=== PATIENT | male | born 1945 | race Caucasian/White ===

== ENCOUNTER 2018-12-10 20:17 | Inpatient (IN) ==
[2018-12-10 21:13] LABS: Basophils % 0.3 % (0.0-0.8); Eosinophils % 0.1 % (0.00-10.9); Hematocrit 48.9 VOL% (42.0-52.0); Hemoglobin 15.6 GM/DL (14.0-18.0); Immature Granulocytes % 0.5 %; Immature Granulocytes Absolute 0.06 #; Lymphocytes # 0.5 10*3/uL (1.4-4.0); Lymphocytes % 4.8 % (21.2-54.2); Mean Corpuscular HGB Conc 31.9 GM/DL (32-36); Mean Corpuscular Volume 108.9 FL (87-102); Mean Platelet Volume 9.5 FL (9.6-12.0); Monocytes % 5.9 % (1.7-12.7); Neutrophils % 88.4 % (38.7-73.9); Platelet Count 153 T/CUMM (130-400); Red Blood Count 4.49 MC/CUMM (3.8-5.5); Red Cell Distribution Width 12.9 % (9.3-17.3); White Blood Count 11.3 T/CUMM (4-12)
[2018-12-10] MEDS ORDERED: methylPREDNISolone SOD SUC 125 MG/2 ML VIAL IV STA (21:13)
[2018-12-10] MEDS ORDERED: ALBUTEROL/IPRATROPIUM 3 ML NEB RESP TX STA (21:14)
[2018-12-10 21:23] LABS: VBG Base Excess 4.6 MEQ/L (0-4); VBG HCO3 28.5 MEQ/L (24-28); VBG Oxygen Saturation 98.6 %; VBG PCO2 45.1 MMHG (41-51); VBG PH 7.427
[2018-12-10 21:32] LABS: Albumin 3.4 G/DL (3.4-5.0); Bilirubin,Total 0.8 MG/DL (0.2-1.0); Calcium 9.3 MG/DL (8.5-10.1); Osmolality,Calculated 288.3 MOS/KG (273-304); Total Protein 7.2 G/DL (6.4-8.3)
[2018-12-10 21:39] LABS: Lymphocytes 4 % (20-55); Segmented Neutrophils 91 % (50-85)
[2018-12-10 21:40] LABS: Platelet Estimate Normal
[2018-12-10 21:41] LABS: Total Cells Counted 100
[2018-12-10] MEDS ORDERED: cefTRIAXone 1,000 MG in SODIUM CHLORIDE 0.9% 100 ML IV STA (22:12)
[2018-12-10] MEDS ORDERED: AZITHROMYCIN 250 MG TABLET PO STA (22:12)
[2018-12-10] MEDS ORDERED: ONDANSETRON 4 MG/2 ML VIAL IV PRN (23:33)
[2018-12-10] MEDS ORDERED: ACETAMINOPHEN 325 MG TABLET PO PRN (23:33)
[2018-12-11] MEDS: DEXTROSE 5% NACL 0.9% 1,000 ML IV SCH ×3 (00:15→21:03)
[2018-12-11] MEDS ORDERED: AZITHROMYCIN INJ 500 MG in SODIUM CHLORIDE 0.9% 250 ML IV SCH ×2 (00:30→22:00)
[2018-12-11] MEDS ORDERED: predniSONE 10 MG TABLET PO PRN (07:42)
[2018-12-11] MEDS ORDERED: BUPRENORPHINE PATCH TRANSDERM SCH (07:45)
[2018-12-11] MEDS ORDERED: NON-FORMULARY MEDICATION (Tiotropium Bromide [Spiriva With Handihaler] 18 MCG) INH SCH (09:00)
[2018-12-11 10:13] LABS: Apearance,Urine CLEAR (Clear); Bilirubin,Urine Negative (Negative); Blood, Urine Negative (Negative); Glucose,Urine (UA) Negative (Negative); Hyaline Casts,Urine 1 /LPF (0-3); Ketones,Urine 5 mg/dL (Negative); Mucus,Urine Many /LPF (Occasional); Nitrite,Urine Negative (Negative); Protein,Urine 30 MG/DL; RBC,Urine 4 /HPF (0-4); Sperm,Urine Occasional /HPF (Negative); Urine Color Yellow (Yellow); Urine Specific Gravity 1.024 (1.001-1.035); Urine Urobilinogen < 2.0 EU/DL (0.2-1.0); WBC,Urine <1 /HPF (0-6)
[2018-12-11] MEDS: PANTOPRAZOLE 40 MG TABLET PO SCH (10:26)
[2018-12-11] MEDS: DOCUSATE SODIUM 100 MG CAPSULE PO SCH ×2 (10:26→21:00)
[2018-12-11] MEDS: FOLIC ACID 1 MG TABLET PO SCH (10:26)
[2018-12-11] MEDS: oxyCODONE ER 20 MG TABLET PO SCH ×2 (10:28→20:58)
[2018-12-11] MEDS: ALBUTEROL/IPRATROPIUM 3 ML NEB RESP TX SCH ×4 (10:36→23:30)
[2018-12-11] MEDS: cefTRIAXone 1,000 MG in SYRINGE 1 EACH IV SCH ×2 (10:49→21:00)
[2018-12-11] MEDS: MOMETASONE 0.1% OINT 15 GM TUBE TOP SCH (10:54)
[2018-12-11] MEDS: methylPREDNISolone SOD SUC 40 MG/1 ML VIAL IV SCH ×2 (10:55→16:39)
[2018-12-11] MEDS: FINASTERIDE 5 MG TABLET PO SCH (21:01)
[2018-12-11] MEDS: AZITHROMYCIN INJ 250 MG in SODIUM CHLORIDE 0.9% 250 ML IV SCH (21:17)
[2018-12-12] MEDS: methylPREDNISolone SOD SUC 40 MG/1 ML VIAL IV SCH ×3 (01:08→18:08)
[2018-12-12] MEDS: ALBUTEROL/IPRATROPIUM 3 ML NEB RESP TX SCH ×5 (02:38→20:06)
[2018-12-12] MEDS: DEXTROSE 5% NACL 0.9% 1,000 ML IV SCH ×2 (04:08→12:38)
[2018-12-12 05:39] LABS: Basophils % 0.1 % (0.0-0.8); Hemoglobin 11.7 GM/DL (14.0-18.0); Immature Granulocytes % 0.5 %; Immature Granulocytes Absolute 0.05 #; Lymphocytes # 0.2 10*3/uL (1.4-4.0); Mean Corpuscular HGB Conc 31.6 GM/DL (32-36); Mean Corpuscular Volume 111.8 FL (87-102); Mean Platelet Volume 10.5 FL (9.6-12.0); Neutrophils % 94.4 % (38.7-73.9); Platelet Count 155 T/CUMM (130-400); Red Blood Count 3.31 MC/CUMM (3.8-5.5); Red Cell Distribution Width 13.1 % (9.3-17.3); White Blood Count 10.8 T/CUMM (4-12)
[2018-12-12 06:04] LABS: Band Neutrophils 1 % (0-10); Hypochromasia Slight; Lymphocytes 2 % (20-55); Platelet Estimate Adequate; Segmented Neutrophils 93 % (50-85); Total Cells Counted 100
[2018-12-12 06:07] LABS: Alanine Aminotransferase 43 U/L (16-61); Albumin 2.7 G/DL (3.4-5.0); Alkaline Phosphatase 73 U/L (45-117); Aspartate Amino Transferase 64 U/L (0-37); Bilirubin,Total < 0.39 MG/DL (0.2-1.0); Blood Urea Nitrogen 26 MG/DL (7-18); Calcium 7.9 MG/DL (8.5-10.1); Glucose 158 MG/DL (74-106); HDL Cholesterol 60 MG/DL (40-60); Osmolality,Calculated 299.4 MOS/KG (273-304); Risk Ratio 1.97; Thyroid Stimulating Hormone 0.362 uIU/ml (0.358-3.74); Total Protein 5.8 G/DL (6.4-8.3); Triglycerides 75 MG/DL (2-150)
[2018-12-12] MEDS: DOCUSATE SODIUM 100 MG CAPSULE PO SCH ×2 (09:18→21:41)
[2018-12-12] MEDS: FOLIC ACID 1 MG TABLET PO SCH (09:18)
[2018-12-12] MEDS: PANTOPRAZOLE 40 MG TABLET PO SCH (09:18)
[2018-12-12] MEDS: oxyCODONE ER 20 MG TABLET PO SCH ×2 (09:18→20:01)
[2018-12-12] MEDS: cefTRIAXone 1,000 MG in SYRINGE 1 EACH IV SCH ×2 (09:21→21:41)
[2018-12-12] MEDS: MOMETASONE 0.1% OINT 15 GM TUBE TOP SCH (09:25)
[2018-12-12] MEDS: FINASTERIDE 5 MG TABLET PO SCH (21:41)
[2018-12-12] MEDS: AZITHROMYCIN INJ 250 MG in SODIUM CHLORIDE 0.9% 250 ML IV SCH (21:42)
[2018-12-13] MEDS: ALBUTEROL/IPRATROPIUM 3 ML NEB RESP TX SCH ×6 (00:21→19:34)
[2018-12-13] MEDS: DEXTROSE 5% NACL 0.9% 1,000 ML IV SCH (00:46)
[2018-12-13] MEDS: methylPREDNISolone SOD SUC 40 MG/1 ML VIAL IV SCH ×3 (00:50→17:20)
[2018-12-13 05:00] LABS: Basophils % 0.1 % (0.0-0.8); Hematocrit 40.9 VOL% (42.0-52.0); Hemoglobin 12.9 GM/DL (14.0-18.0); Immature Granulocytes % 0.8 %; Immature Granulocytes Absolute 0.11 #; Lymphocytes # 0.5 10*3/uL (1.4-4.0); Lymphocytes % 3.2 % (21.2-54.2); Mean Corpuscular HGB Conc 31.5 GM/DL (32-36); Mean Corpuscular Volume 112.7 FL (87-102); Mean Platelet Volume 10.4 FL (9.6-12.0); Monocytes % 4.6 % (1.7-12.7); Neutrophils % 91.3 % (38.7-73.9); Platelet Count 158 T/CUMM (130-400); Red Blood Count 3.63 MC/CUMM (3.8-5.5); Red Cell Distribution Width 13.1 % (9.3-17.3); White Blood Count 14.1 T/CUMM (4-12)
[2018-12-13 05:26] LABS: Hypochromasia 1+; Lymphocytes 1 % (20-55); Platelet Estimate Adequate; Segmented Neutrophils 94 % (50-85); Total Cells Counted 100
[2018-12-13 05:28] LABS: Alanine Aminotransferase 74 U/L (16-61); Albumin 2.8 G/DL (3.4-5.0); Alkaline Phosphatase 82 U/L (45-117); Aspartate Amino Transferase 71 U/L (0-37); Bilirubin,Total < 0.39 MG/DL (0.2-1.0); Blood Urea Nitrogen 19 MG/DL (7-18); Calcium 8.1 MG/DL (8.5-10.1); Glucose 136 MG/DL (74-106); Osmolality,Calculated 293.6 MOS/KG (273-304)
[2018-12-13] MEDS: DEXT 5% NACL 0.45% KCL 20 MEQ 20 MEQ/1,000 ML BAG IV SCH ×2 (08:45→17:19)
[2018-12-13] MEDS: MOMETASONE 0.1% OINT 15 GM TUBE TOP SCH (09:04)
[2018-12-13] MEDS: DOCUSATE SODIUM 100 MG CAPSULE PO SCH ×2 (09:05→20:58)
[2018-12-13] MEDS: FOLIC ACID 1 MG TABLET PO SCH (09:05)
[2018-12-13] MEDS: PANTOPRAZOLE 40 MG TABLET PO SCH (09:06)
[2018-12-13] MEDS: oxyCODONE ER 20 MG TABLET PO SCH ×2 (09:06→20:58)
[2018-12-13] MEDS: cefTRIAXone 1,000 MG in SYRINGE 1 EACH IV SCH ×2 (09:09→20:58)
[2018-12-13] MEDS: FINASTERIDE 5 MG TABLET PO SCH (20:58)
[2018-12-13] MEDS: AZITHROMYCIN INJ 250 MG in SODIUM CHLORIDE 0.9% 250 ML IV SCH (21:00)
[2018-12-14] MEDS: ALBUTEROL/IPRATROPIUM 3 ML NEB RESP TX SCH ×3 (00:16→08:08)
[2018-12-14] MEDS: methylPREDNISolone SOD SUC 40 MG/1 ML VIAL IV SCH (00:52)
[2018-12-14] MEDS: DEXT 5% NACL 0.45% KCL 20 MEQ 20 MEQ/1,000 ML BAG IV SCH (02:15)
[2018-12-14 04:44] LABS: Basophils % 0.2 % (0.0-0.8); Hemoglobin 13.7 GM/DL (14.0-18.0); Immature Granulocytes % 2.2 %; Immature Granulocytes Absolute 0.29 #; Lymphocytes # 0.4 10*3/uL (1.4-4.0); Lymphocytes % 2.8 % (21.2-54.2); Mean Corpuscular HGB Conc 31.9 GM/DL (32-36); Mean Corpuscular Volume 110.8 FL (87-102); Mean Platelet Volume 10.1 FL (9.6-12.0); Monocytes % 4.9 % (1.7-12.7); Neutrophils % 89.9 % (38.7-73.9); Platelet Count 158 T/CUMM (130-400); Red Blood Count 3.88 MC/CUMM (3.8-5.5); Red Cell Distribution Width 13.1 % (9.3-17.3); White Blood Count 12.9 T/CUMM (4-12)
[2018-12-14 05:18] LABS: Lymphocytes 4 % (20-55); Platelet Estimate Adequate; Segmented Neutrophils 92 % (50-85); Total Cells Counted 100
[2018-12-14 05:19] LABS: Hypochromasia 1+
[2018-12-14 05:20] LABS: Albumin 2.9 G/DL (3.4-5.0); Bilirubin,Total 0.4 MG/DL (0.2-1.0); Calcium 8.2 MG/DL (8.5-10.1)
[2018-12-14 07:22] VITALS: BP 165/98
[2018-12-14] MEDS ORDERED: CEFUROXIME 500 MG TABLET PO SCH (09:00)
[2018-12-14] MEDS ORDERED: predniSONE 10 MG TABLET PO SCH (09:00)
[2018-12-14] MEDS: PANTOPRAZOLE 40 MG TABLET PO SCH (09:54)
[2018-12-14] MEDS: DOCUSATE SODIUM 100 MG CAPSULE PO SCH (09:54)
[2018-12-14] MEDS: FOLIC ACID 1 MG TABLET PO SCH (09:54)
[2018-12-14] MEDS: oxyCODONE ER 20 MG TABLET PO SCH (09:54)
[2018-12-14] MEDS: MOMETASONE 0.1% OINT 15 GM TUBE TOP SCH (09:56)
[2018-12-17] MEDS ORDERED: METHOTREXATE 2.5 MG TABLET PO SCH (09:00)
== END 2018-12-14 11:15 | disposition home or self-care (01) | DRG 191 ==
LOC: N.ED 20:17 → N.EDINP 23:03 → N.2E 23:23
PROVIDERS: ADMIT Internal Medicine; ATTEND Family Medicine

== ENCOUNTER 2021-08-17 15:09 | Inpatient (IN) ==
[2021-08-17 15:49] LABS: Basophils % 0.2 % (0.0-0.8); Eosinophils # 0.6 10*3/uL (0.0-0.87); Eosinophils % 3.4 % (0.00-10.9); Hematocrit 35.5 VOL% (42.0-52.0); Hemoglobin 11.2 GM/DL (14.0-18.0); Immature Granulocytes % 0.6 %; Lymphocytes # 0.8 10*3/uL (1.4-4.0); Lymphocytes % 4.8 % (21.2-54.2); Mean Corpuscular HGB Conc 31.5 GM/DL (32-36); Mean Corpuscular Volume 103.5 FL (87-102); Mean Platelet Volume 9.1 FL (9.6-12.0); Monocytes # 0.9 10*3/uL (0.11-0.8); Monocytes % 5.3 % (1.7-12.7); Neutrophils % 85.7 % (38.7-73.9); Platelet Count 255 T/CUMM (130-400); Red Blood Count 3.43 MC/CUMM (3.8-5.5); White Blood Count 17.4 T/CUMM (4-12)
[2021-08-17 16:04] LABS: Bilirubin,Total 0.5 MG/DL (0.20-1.00); Calcium 9.4 MG/DL (8.5-10.1); Osmolality,Calculated 272.1 MOS/KG (273-304); Total Protein 7.4 G/DL (6.4-8.2)
[2021-08-17 16:07] LABS: Anisocytosis 1+; Eosinophils 3 % (0-10); Hypochromia Slight; Lymphocytes 3 % (20-55); Total Cells Counted 100
[2021-08-17 16:08] LABS: Atypical Lymphocytes Few; Macrocytosis 1+; Platelet Estimate Normal; Polychromasia Slight
[2021-08-17] MEDS ORDERED: SODIUM CHLORIDE 0.9% 1,000 ML IV STA (16:38)
[2021-08-17] MEDS ORDERED: ALBUTEROL/IPRATROPIUM 3 ML NEB RESP TX STA (16:39)
[2021-08-17] MEDS ORDERED: LEVOFLOXACIN INJ 750 MG/150 ML PREMIX IV STA (19:01)
[2021-08-17] MEDS ORDERED: oxyCODONE/ACETAMINOPHEN 5-325 MG TABLET PO STA (19:55)
[2021-08-17] MEDS ORDERED: ACETAMINOPHEN 325 MG TABLET PO PRN (19:55)
[2021-08-17] MEDS ORDERED: HYDROmorphone 1 MG/1 ML SYRINGE IV STA (19:55)
[2021-08-17] MEDS ORDERED: ONDANSETRON 4 MG/2 ML VIAL IV PRN (19:55)
[2021-08-17] MEDS: LEVOFLOXACIN INJ 500 MG/100 ML PREMIX IV SCH (21:19)
[2021-08-17] MEDS: SODIUM CHLORIDE 0.9% 1,000 ML IV SCH (22:40)
[2021-08-17] MEDS: DOCUSATE SODIUM 100 MG CAPSULE PO SCH (23:47)
[2021-08-18] MEDS ORDERED: ALBUTEROL/IPRATROPIUM 3 ML NEB RESP TX SCH
[2021-08-18] MEDS: ALBUTEROL/IPRATROPIUM 3 ML NEB RESP TX SCH ×3 (07:23→19:00)
[2021-08-18] MEDS ORDERED: BUPRENORPHINE TRANSDERM SCH (07:45)
[2021-08-18] MEDS ORDERED: MAGNESIUM HYDROXIDE SUSP 30 ML UDCUP PO PRN (07:51)
[2021-08-18] MEDS ORDERED: ZALEPLON 5 MG CAPSULE PO PRN (07:51)
[2021-08-18] MEDS ORDERED: FOLIC ACID 400 MCG PO SCH (09:00)
[2021-08-18] MEDS ORDERED: MOMETASONE 0.1% TOP SCH (09:00)
[2021-08-18] MEDS ORDERED: METHOTREXATE 2.5 MG/ML PO SCH (09:00)
[2021-08-18] MEDS: DOCUSATE SODIUM 100 MG CAPSULE PO SCH ×2 (12:20→22:02)
[2021-08-18] MEDS: cefTRIAXone 1,000 MG in SODIUM CHLORIDE 0.9% 100 ML IV SCH (12:21)
[2021-08-18] MEDS: oxyCODONE ER 20 MG TABLET PO SCH ×2 (12:21→22:02)
[2021-08-18] MEDS: PANTOPRAZOLE 40 MG TABLET PO SCH (12:21)
[2021-08-18] MEDS: methylPREDNISolone SOD SUC 40 MG/1 ML VIAL IV SCH ×3 (12:21→22:02)
[2021-08-18] MEDS ORDERED: IPRATROPIUM 500 MCG/2.5 ML NEB RESP TX SCH (15:00)
[2021-08-18] MEDS: SODIUM CHLORIDE 0.9% 1,000 ML IV SCH ×3 (16:08→22:57)
[2021-08-18] MEDS: LEVOFLOXACIN INJ 500 MG/100 ML PREMIX IV SCH (20:17)
[2021-08-18] MEDS: FINASTERIDE 5 MG TABLET PO SCH (22:02)
[2021-08-19] MEDS: ALBUTEROL/IPRATROPIUM 3 ML NEB RESP TX SCH ×4 (00:05→19:15)
[2021-08-19] MEDS: methylPREDNISolone SOD SUC 40 MG/1 ML VIAL IV SCH ×3 (05:28→20:49)
[2021-08-19] MEDS: SODIUM CHLORIDE 0.9% 1,000 ML IV SCH ×2 (05:29→16:10)
[2021-08-19 05:39] LABS: Hematocrit 34.6 VOL% (42.0-52.0); Hemoglobin 10.8 GM/DL (14.0-18.0); Immature Granulocytes % 0.5 %; Immature Granulocytes Absolute 0.04 #; Lymphocytes # 0.4 10*3/uL (1.4-4.0); Lymphocytes % 4.7 % (21.2-54.2); Mean Corpuscular HGB Conc 31.2 GM/DL (32-36); Mean Corpuscular Volume 106.1 FL (87-102); Mean Platelet Volume 9.9 FL (9.6-12.0); Monocytes # 0.1 10*3/uL (0.11-0.8); Monocytes % 1.1 % (1.7-12.7); Neutrophils % 93.7 % (38.7-73.9); Platelet Count 227 T/CUMM (130-400); Red Blood Count 3.26 MC/CUMM (3.8-5.5); Red Cell Distribution Width 15.1 % (9.3-17.3); White Blood Count 8.2 T/CUMM (4-12)
[2021-08-19 06:00] LABS: Alanine Aminotransferase 15 U/L (16-61); Albumin 2.5 G/DL (3.4-5.0); Alkaline Phosphatase 74 U/L (45-117); Aspartate Amino Transferase 12 U/L (0-37); Bilirubin,Total < 0.39 MG/DL (0.20-1.00); Blood Urea Nitrogen 20 MG/DL (7-18); Carbon Dioxide 29 MMOL/L (21-32); Chloride 104 MMOL/L (98-107); Estimated Glom Filtration Rate 52 ML/MIN; Glucose 168 MG/DL (74-106); Osmolality,Calculated 281.7 MOS/KG (273-304); Potassium 4.4 MMOL/L (3.5-5.1); Sodium 138 MMOL/L (136-145); Total Protein 6.7 G/DL (6.4-8.2)
[2021-08-19 06:03] LABS: Lymphocytes 5 % (20-55); Platelet Estimate Adequate; Total Cells Counted 100
[2021-08-19] MEDS ORDERED: AZITHROMYCIN 250 MG TABLET PO ONE (07:53)
[2021-08-19] MEDS: PANTOPRAZOLE 40 MG TABLET PO SCH (09:07)
[2021-08-19] MEDS: MULTIVITAMIN (CENTRUM) TABLET PO SCH (09:07)
[2021-08-19] MEDS: oxyCODONE ER 20 MG TABLET PO SCH ×2 (09:07→20:49)
[2021-08-19] MEDS: DOCUSATE SODIUM 100 MG CAPSULE PO SCH ×2 (09:07→20:49)
[2021-08-19] MEDS: cefTRIAXone 1,000 MG in SODIUM CHLORIDE 0.9% 100 ML IV SCH (12:10)
[2021-08-19] MEDS: FINASTERIDE 5 MG TABLET PO SCH (20:49)
[2021-08-20] MEDS: ALBUTEROL/IPRATROPIUM 3 ML NEB RESP TX SCH ×4 (00:30→19:43)
[2021-08-20] MEDS: methylPREDNISolone SOD SUC 40 MG/1 ML VIAL IV SCH ×3 (03:49→22:00)
[2021-08-20 04:03] LABS: Basophils % 0.1 % (0.0-0.8); Hematocrit 33.9 VOL% (42.0-52.0); Hemoglobin 10.7 GM/DL (14.0-18.0); Immature Granulocytes % 1.1 %; Immature Granulocytes Absolute 0.14 #; Lymphocytes # 0.4 10*3/uL (1.4-4.0); Lymphocytes % 3.4 % (21.2-54.2); Mean Corpuscular HGB Conc 31.6 GM/DL (32-36); Mean Platelet Volume 9.5 FL (9.6-12.0); Monocytes # 0.3 10*3/uL (0.11-0.8); Monocytes % 2.3 % (1.7-12.7); Neutrophils % 93.1 % (38.7-73.9); Platelet Count 236 T/CUMM (130-400); Red Blood Count 3.26 MC/CUMM (3.8-5.5); Red Cell Distribution Width 15.1 % (9.3-17.3); White Blood Count 12.3 T/CUMM (4-12)
[2021-08-20 04:23] LABS: Lymphocytes 2 % (20-55); Total Cells Counted 100
[2021-08-20 04:24] LABS: Macrocytosis Slight
[2021-08-20 04:27] LABS: Alanine Aminotransferase 19 U/L (16-61); Albumin 2.7 G/DL (3.4-5.0); Alkaline Phosphatase 75 U/L (45-117); Aspartate Amino Transferase 22 U/L (0-37); Bilirubin,Total < 0.39 MG/DL (0.20-1.00); Blood Urea Nitrogen 27 MG/DL (7-18); Calcium 9.3 MG/DL (8.5-10.1); Carbon Dioxide 28 MMOL/L (21-32); Chloride 104 MMOL/L (98-107); Estimated Glom Filtration Rate 67 ML/MIN; Glucose 135 MG/DL (74-106); Osmolality,Calculated 281.7 MOS/KG (273-304); Potassium 4.1 MMOL/L (3.5-5.1); Sodium 138 MMOL/L (136-145); Total Protein 6.7 G/DL (6.4-8.2)
[2021-08-20] MEDS ORDERED: PROMETHAZINE 25 MG/1 ML VIAL IM ONE (07:00)
[2021-08-20] MEDS ORDERED: MEPERIDINE 50 MG/1 ML VIAL IM ONE (07:00)
[2021-08-20] MEDS ORDERED: MIDAZOLAM 2 MG/2 ML VIAL IV ONE (07:30)
[2021-08-20] MEDS ORDERED: LIDOCAINE 2% VISCOUS 100 ML BOTTLE SWISH/SPIT ONE (07:30)
[2021-08-20] MEDS ORDERED: LIDOCAINE 1% 20 ML VIAL MISC INJ ONE (07:30)
[2021-08-20] MEDS ORDERED: LIDOCAINE 2% 20 ML VIAL RESP TX ONE (07:30)
[2021-08-20] MEDS: AZITHROMYCIN 250 MG TABLET PO SCH (10:13)
[2021-08-20] MEDS: MULTIVITAMIN (CENTRUM) TABLET PO SCH (10:13)
[2021-08-20] MEDS: DOCUSATE SODIUM 100 MG CAPSULE PO SCH ×2 (10:14→22:00)
[2021-08-20] MEDS: oxyCODONE ER 20 MG TABLET PO SCH ×2 (10:14→22:00)
[2021-08-20] MEDS: PANTOPRAZOLE 40 MG TABLET PO SCH (10:14)
[2021-08-20] MEDS: cefTRIAXone 1,000 MG in SODIUM CHLORIDE 0.9% 100 ML IV SCH (11:37)
[2021-08-20] MEDS: FINASTERIDE 5 MG TABLET PO SCH (21:59)
[2021-08-20] MEDS: SODIUM CHLORIDE 0.9% 1,000 ML IV SCH ×3 (22:00→22:20)
[2021-08-21] MEDS: ALBUTEROL/IPRATROPIUM 3 ML NEB RESP TX SCH ×4 (01:43→19:38)
[2021-08-21] MEDS: methylPREDNISolone SOD SUC 40 MG/1 ML VIAL IV SCH ×3 (04:47→21:47)
[2021-08-21 05:28] LABS: Basophils % 0.2 % (0.0-0.8); Eosinophils % 0.1 % (0.00-10.9); Hematocrit 35.8 VOL% (42.0-52.0); Hemoglobin 10.8 GM/DL (14.0-18.0); Immature Granulocytes % 1.8 %; Immature Granulocytes Absolute 0.24 #; Lymphocytes # 0.9 10*3/uL (1.4-4.0); Lymphocytes % 7.2 % (21.2-54.2); Mean Corpuscular HGB Conc 30.2 GM/DL (32-36); Mean Corpuscular Volume 108.5 FL (87-102); Mean Platelet Volume 9.9 FL (9.6-12.0); Monocytes # 1.4 10*3/uL (0.11-0.8); Monocytes % 10.8 % (1.7-12.7); Neutrophils % 79.9 % (38.7-73.9); Platelet Count 237 T/CUMM (130-400); Red Cell Distribution Width 15.5 % (9.3-17.3); White Blood Count 13.1 T/CUMM (4-12)
[2021-08-21 06:04] LABS: Calcium 8.1 MG/DL (8.5-10.1); Osmolality,Calculated 282.7 MOS/KG (273-304); Potassium 3.6 MMOL/L (3.5-5.1)
[2021-08-21] MEDS: SODIUM CHLORIDE 0.9% 1,000 ML IV SCH ×2 (06:25→22:17)
[2021-08-21] MEDS: AZITHROMYCIN 250 MG TABLET PO SCH (09:03)
[2021-08-21] MEDS: MULTIVITAMIN (CENTRUM) TABLET PO SCH (09:03)
[2021-08-21] MEDS: DOCUSATE SODIUM 100 MG CAPSULE PO SCH ×2 (09:03→21:47)
[2021-08-21] MEDS: oxyCODONE ER 20 MG TABLET PO SCH ×2 (09:04→21:47)
[2021-08-21] MEDS: PANTOPRAZOLE 40 MG TABLET PO SCH (09:15)
[2021-08-21] MEDS: cefTRIAXone 1,000 MG in SODIUM CHLORIDE 0.9% 100 ML IV SCH (12:25)
[2021-08-21] MEDS: BUDESONIDE 0.25 MG/2 ML NEB RESP TX SCH (19:38)
[2021-08-21] MEDS: FINASTERIDE 5 MG TABLET PO SCH (21:47)
[2021-08-22] MEDS: ALBUTEROL/IPRATROPIUM 3 ML NEB RESP TX SCH ×4 (00:19→19:05)
[2021-08-22] MEDS: methylPREDNISolone SOD SUC 40 MG/1 ML VIAL IV SCH ×3 (04:20→21:07)
[2021-08-22 06:11] LABS: Basophils % 0.2 % (0.0-0.8); Hematocrit 36.7 VOL% (42.0-52.0); Hemoglobin 11.3 GM/DL (14.0-18.0); Immature Granulocytes % 1.9 %; Immature Granulocytes Absolute 0.34 #; Lymphocytes # 0.4 10*3/uL (1.4-4.0); Lymphocytes % 2.3 % (21.2-54.2); Mean Corpuscular HGB Conc 30.8 GM/DL (32-36); Mean Platelet Volume 9.6 FL (9.6-12.0); Monocytes # 0.6 10*3/uL (0.11-0.8); Monocytes % 3.2 % (1.7-12.7); Neutrophils % 92.4 % (38.7-73.9); Platelet Count 251 T/CUMM (130-400); Red Blood Count 3.43 MC/CUMM (3.8-5.5); Red Cell Distribution Width 15.4 % (9.3-17.3); White Blood Count 18.2 T/CUMM (4-12)
[2021-08-22 06:41] LABS: Lymphocytes 2 % (20-55); Platelet Estimate Normal; Total Cells Counted 100
[2021-08-22 06:49] LABS: Calcium 8.6 MG/DL (8.5-10.1); Osmolality,Calculated 284.4 MOS/KG (273-304); Potassium 4.4 MMOL/L (3.5-5.1)
[2021-08-22] MEDS: BUDESONIDE 0.25 MG/2 ML NEB RESP TX SCH ×2 (07:10→19:05)
[2021-08-22] MEDS: SODIUM CHLORIDE 0.9% 1,000 ML IV SCH ×3 (07:21→19:27)
[2021-08-22] MEDS: DOCUSATE SODIUM 100 MG CAPSULE PO SCH ×2 (10:16→21:07)
[2021-08-22] MEDS: MULTIVITAMIN (CENTRUM) TABLET PO SCH (10:16)
[2021-08-22] MEDS: AZITHROMYCIN 250 MG TABLET PO SCH (10:16)
[2021-08-22] MEDS: PANTOPRAZOLE 40 MG TABLET PO SCH (10:16)
[2021-08-22] MEDS: oxyCODONE ER 20 MG TABLET PO SCH ×2 (10:19→21:07)
[2021-08-22] MEDS: cefTRIAXone 1,000 MG in SODIUM CHLORIDE 0.9% 100 ML IV SCH (12:08)
[2021-08-22] MEDS: FINASTERIDE 5 MG TABLET PO SCH (21:07)
[2021-08-23] MEDS: ALBUTEROL/IPRATROPIUM 3 ML NEB RESP TX SCH ×4 (01:15→19:00)
[2021-08-23] MEDS: methylPREDNISolone SOD SUC 40 MG/1 ML VIAL IV SCH ×3 (04:01→21:30)
[2021-08-23 05:17] LABS: Calcium 8.7 MG/DL (8.5-10.1); Osmolality,Calculated 285.4 MOS/KG (273-304); Potassium 4.3 MMOL/L (3.5-5.1)
[2021-08-23] MEDS: BUDESONIDE 0.25 MG/2 ML NEB RESP TX SCH ×2 (07:11→19:10)
[2021-08-23] MEDS: AZITHROMYCIN 250 MG TABLET PO SCH (09:26)
[2021-08-23] MEDS: PANTOPRAZOLE 40 MG TABLET PO SCH (09:26)
[2021-08-23] MEDS: oxyCODONE ER 20 MG TABLET PO SCH ×2 (09:26→21:31)
[2021-08-23] MEDS: DOCUSATE SODIUM 100 MG CAPSULE PO SCH ×2 (09:26→21:30)
[2021-08-23] MEDS: MULTIVITAMIN (CENTRUM) TABLET PO SCH (09:27)
[2021-08-23] MEDS: SODIUM CHLORIDE 0.9% 1,000 ML IV SCH ×2 (09:31→16:00)
[2021-08-23] MEDS: cefTRIAXone 1,000 MG in SODIUM CHLORIDE 0.9% 100 ML IV SCH (11:35)
[2021-08-23] MEDS: FINASTERIDE 5 MG TABLET PO SCH (21:31)
[2021-08-24] MEDS: ALBUTEROL/IPRATROPIUM 3 ML NEB RESP TX SCH ×4 (01:43→18:59)
[2021-08-24 05:08] LABS: Basophils # 0.1 10*3/uL (0.0-0.2); Basophils % 0.2 % (0.0-0.8); Hematocrit 36.9 VOL% (42.0-52.0); Hemoglobin 11.7 GM/DL (14.0-18.0); Immature Granulocytes % 2.9 %; Immature Granulocytes Absolute 0.74 #; Lymphocytes # 0.5 10*3/uL (1.4-4.0); Lymphocytes % 2.1 % (21.2-54.2); Mean Corpuscular HGB Conc 31.7 GM/DL (32-36); Mean Corpuscular Volume 104.5 FL (87-102); Mean Platelet Volume 9.4 FL (9.6-12.0); Monocytes # 1.1 10*3/uL (0.11-0.8); Monocytes % 4.2 % (1.7-12.7); Neutrophils % 90.6 % (38.7-73.9); Platelet Count 250 T/CUMM (130-400); Red Blood Count 3.53 MC/CUMM (3.8-5.5); Red Cell Distribution Width 15.8 % (9.3-17.3); White Blood Count 25.2 T/CUMM (4-12)
[2021-08-24 05:30] LABS: Lymphocytes 2 % (20-55); Myelocytes 1 %; Total Cells Counted 100
[2021-08-24 05:31] LABS: Macrocytosis Slight
[2021-08-24 05:50] LABS: Calcium 9.1 MG/DL (8.5-10.1); Osmolality,Calculated 279.8 MOS/KG (273-304); Potassium 4.3 MMOL/L (3.5-5.1)
[2021-08-24] MEDS: methylPREDNISolone SOD SUC 40 MG/1 ML VIAL IV SCH ×3 (06:20→21:28)
[2021-08-24] MEDS: BUDESONIDE 0.25 MG/2 ML NEB RESP TX SCH ×2 (07:30→18:59)
[2021-08-24] MEDS ORDERED: FUROSEMIDE 40 MG/4 ML VIAL IV ONE (08:12)
[2021-08-24] MEDS: AZITHROMYCIN 250 MG TABLET PO SCH (09:13)
[2021-08-24] MEDS: PANTOPRAZOLE 40 MG TABLET PO SCH (09:13)
[2021-08-24] MEDS: DOCUSATE SODIUM 100 MG CAPSULE PO SCH ×2 (09:13→21:28)
[2021-08-24] MEDS: GABAPENTIN 100 MG CAPSULE PO SCH ×2 (09:13→21:28)
[2021-08-24] MEDS: FOLIC ACID 1 MG TABLET PO SCH (09:13)
[2021-08-24] MEDS: MULTIVITAMIN (CENTRUM) TABLET PO SCH (09:13)
[2021-08-24] MEDS: oxyCODONE ER 20 MG TABLET PO SCH ×2 (09:13→21:29)
[2021-08-24] MEDS: ITRACONAZOLE 100 MG CAPSULE PO SCH (09:17)
[2021-08-24] MEDS: cefTRIAXone 1,000 MG in SODIUM CHLORIDE 0.9% 100 ML IV SCH (10:34)
[2021-08-24] MEDS: SODIUM CHLORIDE 0.9% 1,000 ML IV SCH (15:53)
[2021-08-24] MEDS: FINASTERIDE 5 MG TABLET PO SCH (21:28)
[2021-08-25] MEDS: ALBUTEROL/IPRATROPIUM 3 ML NEB RESP TX SCH ×3 (01:05→13:17)
[2021-08-25 05:34] LABS: Alanine Aminotransferase 20 U/L (16-61); Albumin 2.5 G/DL (3.4-5.0); Alkaline Phosphatase 74 U/L (45-117); Aspartate Amino Transferase 14 U/L (0-37); Bilirubin,Total < 0.39 MG/DL (0.20-1.00); Blood Urea Nitrogen 32 MG/DL (7-18); Calcium 8.5 MG/DL (8.5-10.1); Carbon Dioxide 30 MMOL/L (21-32); Chloride 101 MMOL/L (98-107); Estimated Glom Filtration Rate 66 ML/MIN; Glucose 141 MG/DL (74-106); Potassium 4.6 MMOL/L (3.5-5.1); Sodium 136 MMOL/L (136-145); Total Protein 6.4 G/DL (6.4-8.2)
[2021-08-25 05:54] LABS: Basophils # 0.1 10*3/uL (0.0-0.2); Basophils % 0.4 % (0.0-0.8); Hematocrit 36.9 VOL% (42.0-52.0); Hemoglobin 11.6 GM/DL (14.0-18.0); Immature Granulocytes % 3.5 %; Immature Granulocytes Absolute 0.62 #; Lymphocytes # 0.6 10*3/uL (1.4-4.0); Lymphocytes % 3.3 % (21.2-54.2); Mean Corpuscular HGB Conc 31.4 GM/DL (32-36); Mean Corpuscular Volume 106.6 FL (87-102); Mean Platelet Volume 9.7 FL (9.6-12.0); Monocytes # 0.7 10*3/uL (0.11-0.8); Monocytes % 3.9 % (1.7-12.7); Neutrophils % 88.9 % (38.7-73.9); Platelet Count 227 T/CUMM (130-400); Red Blood Count 3.46 MC/CUMM (3.8-5.5); Red Cell Distribution Width 15.9 % (9.3-17.3); White Blood Count 17.6 T/CUMM (4-12)
[2021-08-25 06:00] LABS: Lymphocytes 3 % (20-55); Total Cells Counted 100
[2021-08-25 06:01] LABS: Macrocytosis Slight
[2021-08-25] MEDS: methylPREDNISolone SOD SUC 40 MG/1 ML VIAL IV SCH ×2 (06:31→11:51)
[2021-08-25] MEDS: BUDESONIDE 0.25 MG/2 ML NEB RESP TX SCH (07:40)
[2021-08-25 08:33] VITALS: BP 149/68
[2021-08-25] MEDS ORDERED: CEFDINIR 300 MG CAPSULE PO SCH (09:00)
[2021-08-25] MEDS: FOLIC ACID 1 MG TABLET PO SCH (09:39)
[2021-08-25] MEDS: ITRACONAZOLE 100 MG CAPSULE PO SCH (09:39)
[2021-08-25] MEDS: oxyCODONE ER 20 MG TABLET PO SCH (09:39)
[2021-08-25] MEDS: GABAPENTIN 100 MG CAPSULE PO SCH (09:40)
[2021-08-25] MEDS: AZITHROMYCIN 250 MG TABLET PO SCH (09:40)
[2021-08-25] MEDS: DOCUSATE SODIUM 100 MG CAPSULE PO SCH (09:40)
[2021-08-25] MEDS: PANTOPRAZOLE 40 MG TABLET PO SCH (09:40)
[2021-08-25] MEDS: MULTIVITAMIN (CENTRUM) TABLET PO SCH (09:40)
[2021-08-25] MEDS: cefTRIAXone 1,000 MG in SODIUM CHLORIDE 0.9% 100 ML IV SCH (11:50)
== END 2021-08-25 13:44 | disposition home or self-care (01) | DRG 190 ==
LOC: N.ED 15:09 → N.EDINP 21:34 → N.SDSINP 22:35 → N.TELEN 22:35
PROVIDERS: ADMIT Family Medicine; ATTEND Family Medicine

== ENCOUNTER 2021-11-27 14:50 | Inpatient (IN) ==
[2021-11-27] MEDS ORDERED: PIPERACILLIN/TAZOBACTAM 3,375 MG in SODIUM CHLORIDE 0.9% 100 ML IV STA (15:23)
[2021-11-27] MEDS ORDERED: methylPREDNISolone SOD SUC 125 MG/2 ML VIAL IV STA (15:23)
[2021-11-27] MEDS ORDERED: ALBUTEROL/IPRATROPIUM 3 ML NEB RESP TX STA (15:23)
[2021-11-27 15:34] LABS: Basophils # 0.1 10*3/uL (0.0-0.2); Basophils % 0.4 % (0.0-0.8); Hematocrit 41.8 VOL% (42.0-52.0); Hemoglobin 13.6 GM/DL (14.0-18.0); Immature Granulocytes % 6.3 %; Immature Granulocytes Absolute 1.48 #; Lymphocytes # 0.6 10*3/uL (1.4-4.0); Lymphocytes % 2.5 % (21.2-54.2); Mean Corpuscular HGB Conc 32.5 GM/DL (32-36); Mean Corpuscular Volume 103.2 FL (87-102); Mean Platelet Volume 9.3 FL (9.6-12.0); Monocytes # 1.5 10*3/uL (0.11-0.8); Monocytes % 6.3 % (1.7-12.7); Neutrophils % 84.5 % (38.7-73.9); Platelet Count 205 T/CUMM (130-400); Red Blood Count 4.05 MC/CUMM (3.8-5.5); Red Cell Distribution Width 17.2 % (9.3-17.3); White Blood Count 23.3 T/CUMM (4-12)
[2021-11-27 15:42] LABS: Arterial Base Excess iSTAT 8 MMOL/L (-2.5-2.5); Arterial Bicarbonate iSTAT 34.2 MMOL/L (20-26); Arterial O2 Saturation iSTAT 89 % (95-100); Arterial PCO2 iSTAT 55 MM HG (35-48); Arterial PO2 iSTAT 58 MM HG (80-95); Arterial Total CO2 iSTAT 36 MMO/L (23-27); Arterial pH iSTAT 7.405 (7.35-7.45)
[2021-11-27 16:15] LABS: Albumin 3.2 G/DL (3.4-5.0); Bilirubin,Total 0.4 MG/DL (0.20-1.00); Calcium 9.2 MG/DL (8.5-10.1); Osmolality,Calculated 286.3 MOS/KG (273-304); Potassium 3.9 MMOL/L (3.5-5.1); Total Protein 6.8 G/DL (6.4-8.2)
[2021-11-27 16:25] LABS: Lymphocytes 4 % (20-55); Platelet Estimate Adequate; Total Cells Counted 100
[2021-11-27 16:27] LABS: Anisocytosis 1+; Macrocytosis Slight
[2021-11-27] MEDS ORDERED: ALBUTEROL NEB SOLN 5 MG/ML 20 ML/BOTTLE CONT NEB STA (16:45)
[2021-11-27] MEDS ORDERED: ALBUTEROL 2.5 MG/3 ML NEB RESP TX PRN (17:47)
[2021-11-27] MEDS ORDERED: ONDANSETRON 4 MG/2 ML VIAL IV PRN (17:48)
[2021-11-27] MEDS ORDERED: NICOTINE 21 MG/24 HR PATCH TRANSDERM PRN (17:48)
[2021-11-27] MEDS ORDERED: guaiFENesin/DM ER 600-30 MG TABLET PO PRN (17:48)
[2021-11-27] MEDS ORDERED: ACETAMINOPHEN 325 MG TABLET PO PRN (17:48)
[2021-11-27] MEDS ORDERED: DIAZEPAM 10 MG/2 ML SYRINGE ONE (17:51)
[2021-11-27] MEDS ORDERED: MORPHINE 2 MG/1 ML SYRINGE IV STA (17:59)
[2021-11-27] MEDS ORDERED: methylPREDNISolone SOD SUC 40 MG/1 ML VIAL IV SCH (18:00)
[2021-11-27] MEDS ORDERED: ETOMIDATE 20 MG/10 ML VIAL IV ONE (18:05)
[2021-11-27] MEDS ORDERED: ROCURONIUM 100 MG/10 ML VIAL IV ONE (18:06)
[2021-11-27] MEDS: PANTOPRAZOLE 40 MG VIAL IV SCH (18:32)
[2021-11-27] MEDS: LEVOFLOXACIN INJ 750 MG/150 ML PREMIX IV SCH (18:33)
[2021-11-27] MEDS: LACTATED RINGERS 1,000 ML IV SCH (18:33)
[2021-11-27] MEDS: ALBUTEROL/IPRATROPIUM 3 ML NEB RESP TX SCH (19:00)
[2021-11-27 19:06] LABS: Arterial Base Excess iSTAT 9 MMOL/L (-2.5-2.5); Arterial O2 Saturation iSTAT 100 % (95-100); Arterial PCO2 iSTAT 51 MM HG (35-48); Arterial PO2 iSTAT 455 MM HG (80-95); Arterial Total CO2 iSTAT 37 MMO/L (23-27); Arterial pH iSTAT 7.441 (7.35-7.45)
[2021-11-27 19:31] VITALS: BP 124/87
[2021-11-27] MEDS ORDERED: SODIUM CHLORIDE 0.9% 1,000 ML IV STA (19:42)
[2021-11-27] MEDS ORDERED: oxyCODONE ER 20 MG TABLET PO SCH (21:00)
[2021-11-27] MEDS: fentaNYL INJ 1,250 MCG in SODIUM CHLORIDE 0.9% 225 ML IV PRN (21:45)
[2021-11-27] MEDS: GABAPENTIN 100 MG CAPSULE PO SCH (22:49)
[2021-11-27] MEDS: TAMSULOSIN 0.4 MG CAPSULE PO SCH (22:49)
[2021-11-27] MEDS: FINASTERIDE 5 MG TABLET PO SCH (22:49)
[2021-11-27] MEDS: ENOXAPARIN 40 MG/0.4 ML SYRINGE SUBCUT SCH (22:49)
[2021-11-28] MEDS: methylPREDNISolone SOD SUC 40 MG/1 ML VIAL IV SCH ×4 (00:01→21:06)
[2021-11-28] MEDS: ALBUTEROL/IPRATROPIUM 3 ML NEB RESP TX SCH ×4 (00:32→19:07)
[2021-11-28 04:47] LABS: Arterial Base Excess iSTAT 3 MMOL/L (-2.5-2.5); Arterial Bicarbonate iSTAT 29.4 MMOL/L (20-26); Arterial O2 Saturation iSTAT 100 % (95-100); Arterial PCO2 iSTAT 54 MM HG (35-48); Arterial PO2 iSTAT 200 MM HG (80-95); Arterial Total CO2 iSTAT 31 MMO/L (23-27); Arterial pH iSTAT 7.343 (7.35-7.45)
[2021-11-28] MEDS: LACTATED RINGERS 1,000 ML IV SCH ×2 (05:46→14:44)
[2021-11-28 06:11] LABS: Calcium 8.6 MG/DL (8.5-10.1); Osmolality,Calculated 285.4 MOS/KG (273-304); Potassium 3.7 MMOL/L (3.5-5.1)
[2021-11-28 06:14] LABS: Basophils # 0.1 10*3/uL (0.0-0.2); Basophils % 0.2 % (0.0-0.8); Hematocrit 37.2 VOL% (42.0-52.0); Immature Granulocytes % 3.7 %; Immature Granulocytes Absolute 0.99 #; Lymphocytes # 0.2 10*3/uL (1.4-4.0); Lymphocytes % 0.6 % (21.2-54.2); Mean Corpuscular HGB Conc 32.3 GM/DL (32-36); Mean Corpuscular Volume 102.5 FL (87-102); Mean Platelet Volume 9.1 FL (9.6-12.0); Monocytes % 3.8 % (1.7-12.7); Neutrophils % 91.7 % (38.7-73.9); Platelet Count 153 T/CUMM (130-400); Red Blood Count 3.63 MC/CUMM (3.8-5.5); Red Cell Distribution Width 17.2 % (9.3-17.3); White Blood Count 26.8 T/CUMM (4-12)
[2021-11-28 06:38] LABS: Free T4 (Free Thyroxine) 0.77 NG/DL (0.76-1.46); Thyroid Stimulating Hormone 1.44 uIU/ml (0.358-3.74)
[2021-11-28 06:58] LABS: Folate 12.8 NG/ML (5.38-24.0)
[2021-11-28 07:11] LABS: Lymphocytes 1 % (20-55); Platelet Estimate Adequate; Schistocytes Slight; Total Cells Counted 100
[2021-11-28] MEDS ORDERED: Fluticasone-Umeclidin-Vilanter [Trelegy Ellipta] 100-62.5-25 mcg INH SCH (09:00)
[2021-11-28] MEDS: TAMSULOSIN 0.4 MG CAPSULE PO SCH ×2 (09:02→20:53)
[2021-11-28] MEDS: GABAPENTIN 100 MG CAPSULE PO SCH (09:04)
[2021-11-28] MEDS ORDERED: GLUCAGON 1 MG VIAL IM PRN (09:33)
[2021-11-28] MEDS ORDERED: DEXTROSE 10% 250 ML BAG IV PRN (09:36)
[2021-11-28] MEDS: CYANOCOBALAMIN 500 MCG TABLET PO SCH (10:28)
[2021-11-28] MEDS: INSULIN LISPRO 100 UNIT/ML SUBCUT SCH ×2 (11:08→17:04)
[2021-11-28 11:12] LABS: Bilirubin,Urine Negative (Negative); Blood, Urine Moderate mg/dL (Negative); Glucose,Urine (UA) Negative (Negative); Ketones,Urine Negative (Negative); Nitrite,Urine Negative (Negative); Protein,Urine Negative (Negative); Urine Appearance Clear (Clear); Urine Color Yellow (Yellow); Urine Specific Gravity 1.015 (1.001-1.035); Urine pH 5.5 (4.5-8.0)
[2021-11-28 11:13] LABS: Urine Urobilinogen 0.2 eU/dL (<2.0)
[2021-11-28 11:33] LABS: Bacteria,Urine Occasional /HPF (Few); Hyaline Casts,Urine 1 /LPF (0-3); Mucus,Urine Occasional /LPF (Occasional); RBC,Urine 17 /HPF (0-4); Squamous Epithelial Cell,Urine Occasional /HPF (0-10)
[2021-11-28] MEDS: LEVOFLOXACIN INJ 750 MG/150 ML PREMIX IV SCH (17:25)
[2021-11-28] MEDS: PANTOPRAZOLE 40 MG VIAL IV SCH (17:25)
[2021-11-28] MEDS: FINASTERIDE 5 MG TABLET PO SCH (20:53)
[2021-11-28] MEDS: ENOXAPARIN 40 MG/0.4 ML SYRINGE SUBCUT SCH (20:53)
[2021-11-28] MEDS: GABAPENTIN 50 MG/ML 30 ML/BOTTLE PER TUBE SCH (20:54)
[2021-11-29] MEDS: INSULIN LISPRO 100 UNIT/ML SUBCUT SCH ×4 (00:02→18:08)
[2021-11-29] MEDS: ALBUTEROL/IPRATROPIUM 3 ML NEB RESP TX SCH ×4 (00:11→19:14)
[2021-11-29] MEDS: fentaNYL INJ 1,250 MCG in SODIUM CHLORIDE 0.9% 225 ML IV PRN (01:08)
[2021-11-29] MEDS: LACTATED RINGERS 1,000 ML IV SCH ×2 (02:24→13:31)
[2021-11-29 03:45] LABS: Arterial Base Excess iSTAT 12 MMOL/L (-2.5-2.5); Arterial Bicarbonate iSTAT 36.4 MMOL/L (20-26); Arterial O2 Saturation iSTAT 96 % (95-100); Arterial PCO2 iSTAT 48 MM HG (35-48); Arterial PO2 iSTAT 78 MM HG (80-95); Arterial Total CO2 iSTAT 38 MMO/L (23-27); Arterial pH iSTAT 7.489 (7.35-7.45)
[2021-11-29 05:05] LABS: Basophils % 0.1 % (0.0-0.8); Hematocrit 35.3 VOL% (42.0-52.0); Hemoglobin 11.3 GM/DL (14.0-18.0); Immature Granulocytes % 2.1 %; Lymphocytes # 0.2 10*3/uL (1.4-4.0); Lymphocytes % 1.1 % (21.2-54.2); Mean Corpuscular Volume 103.5 FL (87-102); Mean Platelet Volume 9.3 FL (9.6-12.0); Monocytes # 1.1 10*3/uL (0.11-0.8); Monocytes % 5.7 % (1.7-12.7); Platelet Count 129 T/CUMM (130-400); Red Blood Count 3.41 MC/CUMM (3.8-5.5); Red Cell Distribution Width 16.8 % (9.3-17.3); White Blood Count 19.3 T/CUMM (4-12)
[2021-11-29 05:23] LABS: Lymphocytes 3 % (20-55); Total Cells Counted 100
[2021-11-29 05:24] LABS: Hypochromia Slight; Macrocytosis 1+; Platelet Estimate Adequate
[2021-11-29 05:29] LABS: Albumin 2.4 G/DL (3.4-5.0); Bilirubin,Total 0.4 MG/DL (0.20-1.00); Calcium 8.9 MG/DL (8.5-10.1); Osmolality,Calculated 278.5 MOS/KG (273-304); Phosphorous 2.4 MG/DL (2.5-4.9); Potassium 3.8 MMOL/L (3.5-5.1); Total Protein 5.3 G/DL (6.4-8.2)
[2021-11-29] MEDS: methylPREDNISolone SOD SUC 40 MG/1 ML VIAL IV SCH ×3 (06:18→21:24)
[2021-11-29] MEDS: CHOLECALCIFEROL 400 UNIT TABLET PO SCH ×2 (09:28→21:25)
[2021-11-29] MEDS: CYANOCOBALAMIN 500 MCG TABLET PO SCH (09:28)
[2021-11-29] MEDS: DOCUSATE SODIUM 100 MG CAPSULE PO SCH (09:28)
[2021-11-29] MEDS: GABAPENTIN 50 MG/ML 30 ML/BOTTLE PER TUBE SCH ×2 (09:29→21:24)
[2021-11-29] MEDS: TAMSULOSIN 0.4 MG CAPSULE PO SCH ×2 (09:29→21:25)
[2021-11-29] MEDS ORDERED: POTASSIUM PHOSPHATE 30 MMOL in SODIUM CHLORIDE 0.9% 250 ML IV ONE (09:30)
[2021-11-29] MEDS: oxyCODONE ER 20 MG TABLET PO SCH ×2 (12:10→21:25)
[2021-11-29] MEDS ORDERED: KETOROLAC 30 MG/1 ML VIAL IV ONE (16:28)
[2021-11-29] MEDS ORDERED: fentaNYL 25 MCG/HR PATCH TRANSDERM SCH (16:30)
[2021-11-29] MEDS: LEVOFLOXACIN INJ 750 MG/150 ML PREMIX IV SCH (19:02)
[2021-11-29] MEDS: PANTOPRAZOLE 40 MG VIAL IV SCH (19:02)
[2021-11-29] MEDS: FINASTERIDE 5 MG TABLET PO SCH (21:25)
[2021-11-29] MEDS: ENOXAPARIN 40 MG/0.4 ML SYRINGE SUBCUT SCH (21:25)
[2021-11-30] MEDS: ALBUTEROL/IPRATROPIUM 3 ML NEB RESP TX SCH ×4 (00:12→19:45)
[2021-11-30] MEDS: LACTATED RINGERS 1,000 ML IV SCH ×5 (01:49→21:22)
[2021-11-30] MEDS: methylPREDNISolone SOD SUC 40 MG/1 ML VIAL IV SCH ×3 (05:49→21:22)
[2021-11-30] MEDS ORDERED: POTASSIUM PHOSPHATE 30 MMOL in SODIUM CHLORIDE 0.9% 250 ML IV ONE (10:00)
[2021-11-30] MEDS: LEVOFLOXACIN 750 MG TABLET PO SCH (10:34)
[2021-11-30] MEDS: TAMSULOSIN 0.4 MG CAPSULE PO SCH ×2 (10:34→21:23)
[2021-11-30] MEDS: DOCUSATE SODIUM 100 MG CAPSULE PO SCH (10:34)
[2021-11-30] MEDS: CYANOCOBALAMIN 500 MCG TABLET PO SCH (10:35)
[2021-11-30] MEDS: GABAPENTIN 100 MG CAPSULE PO SCH ×2 (10:35→21:23)
[2021-11-30] MEDS: CHOLECALCIFEROL 400 UNIT TABLET PO SCH ×2 (10:35→21:23)
[2021-11-30] MEDS: oxyCODONE ER 20 MG TABLET PO SCH ×2 (10:35→21:23)
[2021-11-30] MEDS: GABAPENTIN 50 MG/ML 30 ML/BOTTLE PER TUBE SCH (10:57)
[2021-11-30] MEDS: PANTOPRAZOLE 40 MG VIAL IV SCH (18:31)
[2021-11-30] MEDS: ENOXAPARIN 40 MG/0.4 ML SYRINGE SUBCUT SCH (21:23)
[2021-11-30] MEDS: FINASTERIDE 5 MG TABLET PO SCH (21:23)
[2021-12-01] MEDS: ALBUTEROL/IPRATROPIUM 3 ML NEB RESP TX SCH ×3 (00:40→13:30)
[2021-12-01] MEDS: LACTATED RINGERS 1,000 ML IV SCH ×2 (03:46→07:14)
[2021-12-01] MEDS: methylPREDNISolone SOD SUC 40 MG/1 ML VIAL IV SCH ×2 (05:49→14:03)
[2021-12-01] MEDS: CHOLECALCIFEROL 400 UNIT TABLET PO SCH (09:00)
[2021-12-01] MEDS: oxyCODONE ER 20 MG TABLET PO SCH (09:00)
[2021-12-01] MEDS: DOCUSATE SODIUM 100 MG CAPSULE PO SCH (09:00)
[2021-12-01] MEDS: TAMSULOSIN 0.4 MG CAPSULE PO SCH (09:00)
[2021-12-01] MEDS: CYANOCOBALAMIN 500 MCG TABLET PO SCH (09:00)
[2021-12-01] MEDS ORDERED: POTASSIUM PHOSPHATE 30 MMOL in SODIUM CHLORIDE 0.9% 250 ML IV ONE (09:00)
[2021-12-01] MEDS: GABAPENTIN 100 MG CAPSULE PO SCH (09:00)
[2021-12-01] MEDS: LEVOFLOXACIN 750 MG TABLET PO SCH (09:00)
[2021-12-01] MEDS ORDERED: LACTULOSE 20 GM/30 ML UDCUP PO ONE (10:09)
== END 2021-12-01 15:05 | disposition swing bed (61) | DRG 208 ==
LOC: N.ED 14:50 → SUATTDRO 17:47 → N.EDINP 17:47 → N.CC 18:15
PROVIDERS: ADMIT Family Medicine; ATTEND Internal Medicine

== ENCOUNTER 2021-12-01 22:42 | Inpatient (IN) ==
[2021-12-01] MEDS ORDERED: SODIUM CHLORIDE 0.9% 500 ML IV STA (23:09)
[2021-12-01] MEDS ORDERED: methylPREDNISolone SOD SUC 125 MG/2 ML VIAL IV STA (23:09)
[2021-12-01] MEDS ORDERED: ALBUTEROL/IPRATROPIUM 3 ML NEB RESP TX STA (23:09)
[2021-12-01] MEDS ORDERED: ALBUTEROL NEB SOLN 5 MG/ML 20 ML/BOTTLE CONT NEB SCH (23:30)
[2021-12-01 23:58] LABS: Alanine Aminotransferase 29 U/L (16-61); Albumin 2.5 G/DL (3.4-5.0); Alkaline Phosphatase 115 U/L (45-117); Aspartate Amino Transferase 20 U/L (0-37); Bilirubin,Total < 0.39 MG/DL (0.20-1.00); Blood Urea Nitrogen 30 MG/DL (7-18); Calcium 8.3 MG/DL (8.5-10.1); Carbon Dioxide 36 MMOL/L (21-32); Chloride 103 MMOL/L (98-107); Glucose 123 MG/DL (74-106); Osmolality,Calculated 292.8 MOS/KG (273-304); Potassium 4.4 MMOL/L (3.5-5.1); Sodium 144 MMOL/L (136-145); Total Protein 5.4 G/DL (6.4-8.2)
[2021-12-02 00:04] LABS: Arterial Base Excess iSTAT 12 MMOL/L (-2.5-2.5); Arterial Bicarbonate iSTAT 38.6 MMOL/L (20-26); Arterial O2 Saturation iSTAT 63 % (95-100); Arterial PCO2 iSTAT 59 MM HG (35-48); Arterial PO2 iSTAT 33 MM HG (80-95); Arterial Total CO2 iSTAT 40 MMO/L (23-27); Arterial pH iSTAT 7.423 (7.35-7.45)
[2021-12-02 00:21] LABS: Basophils # 0.1 10*3/uL (0.0-0.2); Basophils % 0.4 % (0.0-0.8); Hematocrit 35.9 VOL% (42.0-52.0); Hemoglobin 11.6 GM/DL (14.0-18.0); Immature Granulocytes Absolute 0.85 #; Lymphocytes # 0.3 10*3/uL (1.4-4.0); Lymphocytes % 1.8 % (21.2-54.2); Mean Corpuscular HGB Conc 32.3 GM/DL (32-36); Mean Platelet Volume 9.8 FL (9.6-12.0); Monocytes # 1.1 10*3/uL (0.11-0.8); Monocytes % 6.7 % (1.7-12.7); NRBC # 0.03 10*3/uL; Neutrophils % 86.1 % (38.7-73.9); Platelet Count 135 T/CUMM (130-400); Red Blood Count 3.42 MC/CUMM (3.8-5.5); Red Cell Distribution Width 16.9 % (9.3-17.3)
[2021-12-02 00:46] LABS: Lymphocytes 4 % (20-55); Macrocytosis 1+; Platelet Estimate Adequate; Total Cells Counted 100
[2021-12-02] MEDS ORDERED: ONDANSETRON 4 MG/2 ML VIAL IV PRN (01:48)
[2021-12-02] MEDS ORDERED: GLUCAGON 1 MG VIAL IM PRN (01:48)
[2021-12-02] MEDS ORDERED: DEXTROSE 10% 250 ML BAG IV PRN (01:48)
[2021-12-02 03:08] LABS: Arterial Base Excess iSTAT 9 MMOL/L (-2.5-2.5); Arterial Bicarbonate iSTAT 34.9 MMOL/L (20-26); Arterial O2 Saturation iSTAT 95 % (95-100); Arterial PCO2 iSTAT 53 MM HG (35-48); Arterial PO2 iSTAT 75 MM HG (80-95); Arterial Total CO2 iSTAT 36 MMO/L (23-27); Arterial pH iSTAT 7.431 (7.35-7.45)
[2021-12-02 04:34] LABS: Mucus,Urine Occasional /LPF (Occasional); RBC,Urine 103 /HPF (0-4)
[2021-12-02 04:35] LABS: Urine Appearance Clear (Clear); Urine Color Yellow (Yellow)
[2021-12-02 04:36] LABS: Urine Specific Gravity 1.015 (1.001-1.035)
[2021-12-02 04:37] LABS: Bilirubin,Urine Negative (Negative); Blood, Urine Moderate mg/dL (Negative); Glucose,Urine (UA) Negative (Negative); Ketones,Urine Negative (Negative); Nitrite,Urine Negative (Negative); Protein,Urine Negative (Negative); Urine Urobilinogen 0.2 eU/dL (<2.0)
[2021-12-02] MEDS ORDERED: methylPREDNISolone SOD SUC 40 MG/1 ML VIAL IV SCH (06:00)
[2021-12-02] MEDS: ALBUTEROL/IPRATROPIUM 3 ML NEB RESP TX SCH ×3 (07:02→19:48)
[2021-12-02] MEDS: GABAPENTIN 100 MG CAPSULE PO SCH ×2 (09:13→20:30)
[2021-12-02] MEDS: TAMSULOSIN 0.4 MG CAPSULE PO SCH ×2 (09:13→20:30)
[2021-12-02] MEDS: DOCUSATE SODIUM 100 MG CAPSULE PO SCH (09:13)
[2021-12-02] MEDS: PANTOPRAZOLE 40 MG TABLET PO SCH (09:13)
[2021-12-02] MEDS: CYANOCOBALAMIN 500 MCG TABLET PO SCH (09:13)
[2021-12-02] MEDS: CHOLECALCIFEROL 400 UNIT TABLET PO SCH ×2 (09:50→20:31)
[2021-12-02] MEDS: oxyCODONE ER 20 MG TABLET PO SCH ×2 (09:50→20:30)
[2021-12-02] MEDS: fentaNYL 25 MCG/HR PATCH TRANSDERM SCH (09:50)
[2021-12-02 09:52] LABS: Basophils # 0.1 10*3/uL (0.0-0.2); Basophils % 0.3 % (0.0-0.8); Hematocrit 38.4 VOL% (42.0-52.0); Hemoglobin 12.1 GM/DL (14.0-18.0); Immature Granulocytes % 5.7 %; Immature Granulocytes Absolute 0.87 #; Lymphocytes # 0.1 10*3/uL (1.4-4.0); Lymphocytes % 0.5 % (21.2-54.2); Mean Corpuscular HGB Conc 31.5 GM/DL (32-36); Mean Corpuscular Volume 105.8 FL (87-102); Mean Platelet Volume 9.4 FL (9.6-12.0); Monocytes # 0.2 10*3/uL (0.11-0.8); Monocytes % 1.4 % (1.7-12.7); NRBC # 0.03 10*3/uL; Neutrophils % 92.1 % (38.7-73.9); Platelet Count 132 T/CUMM (130-400); Red Blood Count 3.63 MC/CUMM (3.8-5.5); Red Cell Distribution Width 16.9 % (9.3-17.3); White Blood Count 15.3 T/CUMM (4-12)
[2021-12-02] MEDS: (Fluticasone-Umeclidin-Vilanter [Trelegy Ellipta] 100-62.5-25 mcg INH SCH (09:56)
[2021-12-02 10:11] LABS: Lymphocytes 2 % (20-55); Nucleated Red Blood Cells 1 /100 WBC (0-5); Platelet Estimate Normal; Total Cells Counted 100
[2021-12-02 10:17] LABS: Alanine Aminotransferase 27 U/L (16-61); Albumin 2.7 G/DL (3.4-5.0); Alkaline Phosphatase 120 U/L (45-117); Aspartate Amino Transferase 18 U/L (0-37); Bilirubin,Total < 0.39 MG/DL (0.20-1.00); Blood Urea Nitrogen 30 MG/DL (7-18); Calcium 8.8 MG/DL (8.5-10.1); Carbon Dioxide 32 MMOL/L (21-32); Chloride 100 MMOL/L (98-107); Glucose 214 MG/DL (74-106); Osmolality,Calculated 288.5 MOS/KG (273-304); Potassium 4.1 MMOL/L (3.5-5.1); Sodium 139 MMOL/L (136-145)
[2021-12-02] MEDS: methylPREDNISolone SOD SUC 125 MG/2 ML VIAL IV SCH ×2 (10:26→17:23)
[2021-12-02] MEDS: BUDESONIDE 0.5 MG/2 ML NEB RESP TX SCH ×2 (13:02→19:48)
[2021-12-02] MEDS: AZITHROMYCIN 250 MG TABLET PO SCH (20:30)
[2021-12-02] MEDS: FINASTERIDE 5 MG TABLET PO SCH (20:31)
[2021-12-02] MEDS: ENOXAPARIN 40 MG/0.4 ML SYRINGE SUBCUT SCH (20:32)
[2021-12-03] MEDS: ALBUTEROL/IPRATROPIUM 3 ML NEB RESP TX SCH ×4 (00:33→19:38)
[2021-12-03] MEDS: methylPREDNISolone SOD SUC 125 MG/2 ML VIAL IV SCH ×2 (02:33→10:23)
[2021-12-03 06:43] LABS: Basophils # 0.1 10*3/uL (0.0-0.2); Basophils % 0.6 % (0.0-0.8); Hematocrit 37.1 VOL% (42.0-52.0); Hemoglobin 11.9 GM/DL (14.0-18.0); Immature Granulocytes % 6.6 %; Immature Granulocytes Absolute 1.01 #; Lymphocytes # 0.3 10*3/uL (1.4-4.0); Mean Corpuscular HGB Conc 32.1 GM/DL (32-36); Mean Corpuscular Volume 103.9 FL (87-102); Mean Platelet Volume 9.4 FL (9.6-12.0); Monocytes # 0.5 10*3/uL (0.11-0.8); Monocytes % 3.5 % (1.7-12.7); NRBC # 0.02 10*3/uL; Neutrophils % 87.3 % (38.7-73.9); Platelet Count 128 T/CUMM (130-400); Red Blood Count 3.57 MC/CUMM (3.8-5.5); Red Cell Distribution Width 16.6 % (9.3-17.3); White Blood Count 15.3 T/CUMM (4-12)
[2021-12-03 06:49] LABS: Albumin 2.5 G/DL (3.4-5.0); Bilirubin,Total 0.4 MG/DL (0.20-1.00); Calcium 8.7 MG/DL (8.5-10.1); Osmolality,Calculated 285.5 MOS/KG (273-304); Potassium 4.2 MMOL/L (3.5-5.1); Total Protein 5.8 G/DL (6.4-8.2)
[2021-12-03] MEDS: BUDESONIDE 0.5 MG/2 ML NEB RESP TX SCH ×2 (07:35→19:38)
[2021-12-03 07:37] LABS: Anisocytosis 1+; Band Neutrophils 4 % (0-10); Lymphocytes 5 % (20-55); Metamyelocytes 1 %; Nucleated Red Blood Cells 2 /100 WBC (0-5); Platelet Estimate Adequate; Total Cells Counted 100
[2021-12-03 07:38] LABS: Hypochromia Slight; Macrocytosis 1+
[2021-12-03] MEDS: AZITHROMYCIN 250 MG TABLET PO SCH (10:26)
[2021-12-03] MEDS: DOCUSATE SODIUM 100 MG CAPSULE PO SCH (10:26)
[2021-12-03] MEDS: CHOLECALCIFEROL 400 UNIT TABLET PO SCH ×2 (10:26→20:11)
[2021-12-03] MEDS: CYANOCOBALAMIN 500 MCG TABLET PO SCH (10:26)
[2021-12-03] MEDS: PANTOPRAZOLE 40 MG TABLET PO SCH (10:27)
[2021-12-03] MEDS: TAMSULOSIN 0.4 MG CAPSULE PO SCH ×2 (10:27→20:13)
[2021-12-03] MEDS: GABAPENTIN 100 MG CAPSULE PO SCH ×2 (10:27→20:14)
[2021-12-03] MEDS: oxyCODONE ER 20 MG TABLET PO SCH ×2 (10:27→20:11)
[2021-12-03] MEDS: methylPREDNISolone SOD SUC 40 MG/1 ML VIAL IV SCH ×2 (10:28→19:58)
[2021-12-03] MEDS: SODIUM CHLORIDE 0.9% 1,000 ML IV SCH (10:33)
[2021-12-03] MEDS: (Fluticasone-Umeclidin-Vilanter [Trelegy Ellipta] 100-62.5-25 mcg INH SCH (10:34)
[2021-12-03] MEDS: FINASTERIDE 5 MG TABLET PO SCH (20:11)
[2021-12-03] MEDS: ENOXAPARIN 40 MG/0.4 ML SYRINGE SUBCUT SCH (20:13)
[2021-12-04] MEDS: SODIUM CHLORIDE 0.9% 1,000 ML IV SCH ×2 (00:02→17:47)
[2021-12-04] MEDS: ALBUTEROL/IPRATROPIUM 3 ML NEB RESP TX SCH ×5 (00:15→19:33)
[2021-12-04] MEDS: methylPREDNISolone SOD SUC 40 MG/1 ML VIAL IV SCH ×3 (03:53→22:30)
[2021-12-04 06:17] LABS: Basophils # 0.1 10*3/uL (0.0-0.2); Basophils % 0.4 % (0.0-0.8); Hematocrit 37.7 VOL% (42.0-52.0); Hemoglobin 12.3 GM/DL (14.0-18.0); Immature Granulocytes Absolute 1.18 #; Lymphocytes # 0.6 10*3/uL (1.4-4.0); Lymphocytes % 3.3 % (21.2-54.2); Mean Corpuscular HGB Conc 32.6 GM/DL (32-36); Mean Corpuscular Volume 103.9 FL (87-102); Mean Platelet Volume 9.2 FL (9.6-12.0); Monocytes # 1.3 10*3/uL (0.11-0.8); Monocytes % 7.5 % (1.7-12.7); NRBC # 0.03 10*3/uL; Neutrophils % 81.8 % (38.7-73.9); Platelet Count 162 T/CUMM (130-400); Red Blood Count 3.63 MC/CUMM (3.8-5.5); White Blood Count 16.8 T/CUMM (4-12)
[2021-12-04 06:35] LABS: Lymphocytes 6 % (20-55); Platelet Estimate Adequate; Total Cells Counted 100
[2021-12-04 06:41] LABS: Alanine Aminotransferase 26 U/L (16-61); Albumin 2.6 G/DL (3.4-5.0); Alkaline Phosphatase 107 U/L (45-117); Aspartate Amino Transferase 18 U/L (0-37); Bilirubin,Total < 0.39 MG/DL (0.20-1.00); Blood Urea Nitrogen 43 MG/DL (7-18); Calcium 8.5 MG/DL (8.5-10.1); Carbon Dioxide 36 MMOL/L (21-32); Chloride 103 MMOL/L (98-107); Glucose 113 MG/DL (74-106); Osmolality,Calculated 292.3 MOS/KG (273-304); Potassium 4.5 MMOL/L (3.5-5.1); Sodium 141 MMOL/L (136-145); Total Protein 5.5 G/DL (6.4-8.2)
[2021-12-04] MEDS: BUDESONIDE 0.5 MG/2 ML NEB RESP TX SCH ×2 (07:34→19:33)
[2021-12-04] MEDS: AZITHROMYCIN 250 MG TABLET PO SCH (09:29)
[2021-12-04] MEDS: oxyCODONE ER 20 MG TABLET PO SCH ×2 (09:29→21:26)
[2021-12-04] MEDS: ACETAMINOPHEN 325 MG TABLET PO PRN (09:29)
[2021-12-04] MEDS: GABAPENTIN 100 MG CAPSULE PO SCH ×2 (09:30→21:24)
[2021-12-04] MEDS: CYANOCOBALAMIN 500 MCG TABLET PO SCH (09:30)
[2021-12-04] MEDS: CHOLECALCIFEROL 400 UNIT TABLET PO SCH ×2 (09:30→21:25)
[2021-12-04] MEDS: TAMSULOSIN 0.4 MG CAPSULE PO SCH ×2 (09:30→21:24)
[2021-12-04] MEDS: PANTOPRAZOLE 40 MG TABLET PO SCH (09:31)
[2021-12-04] MEDS: DOCUSATE SODIUM 100 MG CAPSULE PO SCH (09:31)
[2021-12-04] MEDS: (Fluticasone-Umeclidin-Vilanter [Trelegy Ellipta] 100-62.5-25 mcg INH SCH (09:31)
[2021-12-04] MEDS: ENOXAPARIN 40 MG/0.4 ML SYRINGE SUBCUT SCH (21:25)
[2021-12-04] MEDS: FINASTERIDE 5 MG TABLET PO SCH (21:25)
[2021-12-05] MEDS: ALBUTEROL/IPRATROPIUM 3 ML NEB RESP TX SCH ×4 (00:26→20:00)
[2021-12-05] MEDS: ACETAMINOPHEN 325 MG TABLET PO PRN (04:14)
[2021-12-05] MEDS: SODIUM CHLORIDE 0.9% 1,000 ML IV SCH ×2 (05:59→13:58)
[2021-12-05] MEDS: methylPREDNISolone SOD SUC 40 MG/1 ML VIAL IV SCH (06:18)
[2021-12-05 07:02] LABS: Basophils # 0.1 10*3/uL (0.0-0.2); Basophils % 0.5 % (0.0-0.8); Eosinophils # 0.1 10*3/uL (0.0-0.87); Eosinophils % 0.4 % (0.00-10.9); Hematocrit 39.5 VOL% (42.0-52.0); Hemoglobin 12.5 GM/DL (14.0-18.0); Immature Granulocytes % 5.5 %; Immature Granulocytes Absolute 0.91 #; Lymphocytes # 1.2 10*3/uL (1.4-4.0); Lymphocytes % 7.2 % (21.2-54.2); Mean Corpuscular HGB Conc 31.6 GM/DL (32-36); Mean Corpuscular Volume 105.3 FL (87-102); Mean Platelet Volume 9.3 FL (9.6-12.0); Monocytes # 1.4 10*3/uL (0.11-0.8); Monocytes % 8.2 % (1.7-12.7); NRBC # 0.02 10*3/uL; Neutrophils % 78.2 % (38.7-73.9); Red Blood Count 3.75 MC/CUMM (3.8-5.5); Red Cell Distribution Width 17.1 % (9.3-17.3); White Blood Count 16.7 T/CUMM (4-12)
[2021-12-05 07:03] LABS: Platelet Count 123 T/CUMM (130-400)
[2021-12-05 07:08] LABS: Albumin 2.7 G/DL (3.4-5.0); Bilirubin,Total 0.6 MG/DL (0.20-1.00); Calcium 8.6 MG/DL (8.5-10.1); Osmolality,Calculated 278.7 MOS/KG (273-304); Potassium 3.9 MMOL/L (3.5-5.1); Total Protein 5.7 G/DL (6.4-8.2)
[2021-12-05] MEDS: BUDESONIDE 0.5 MG/2 ML NEB RESP TX SCH ×2 (07:12→20:00)
[2021-12-05 07:25] LABS: Lymphocytes 9 % (20-55); Total Cells Counted 100
[2021-12-05] MEDS: (Fluticasone-Umeclidin-Vilanter [Trelegy Ellipta] 100-62.5-25 mcg INH SCH (08:17)
[2021-12-05] MEDS: fentaNYL 25 MCG/HR PATCH TRANSDERM SCH (08:19)
[2021-12-05] MEDS: GABAPENTIN 100 MG CAPSULE PO SCH ×2 (08:21→20:20)
[2021-12-05] MEDS: CYANOCOBALAMIN 500 MCG TABLET PO SCH (08:22)
[2021-12-05] MEDS: TAMSULOSIN 0.4 MG CAPSULE PO SCH ×2 (08:22→20:20)
[2021-12-05] MEDS: AZITHROMYCIN 250 MG TABLET PO SCH (08:22)
[2021-12-05] MEDS: DOCUSATE SODIUM 100 MG CAPSULE PO SCH (08:23)
[2021-12-05] MEDS: oxyCODONE ER 20 MG TABLET PO SCH ×2 (08:23→20:20)
[2021-12-05] MEDS: CHOLECALCIFEROL 400 UNIT TABLET PO SCH ×2 (08:23→20:20)
[2021-12-05] MEDS: PANTOPRAZOLE 40 MG TABLET PO SCH (08:24)
[2021-12-05] MEDS: FINASTERIDE 5 MG TABLET PO SCH (20:20)
[2021-12-05] MEDS: ENOXAPARIN 40 MG/0.4 ML SYRINGE SUBCUT SCH (20:20)
[2021-12-05] MEDS: predniSONE 20 MG TABLET PO SCH (20:25)
[2021-12-06] MEDS: ALBUTEROL/IPRATROPIUM 3 ML NEB RESP TX SCH ×2 (00:45→07:20)
[2021-12-06 05:27] LABS: Basophils # 0.1 10*3/uL (0.0-0.2); Basophils % 0.3 % (0.0-0.8); Eosinophils % 0.1 % (0.00-10.9); Hematocrit 35.2 VOL% (42.0-52.0); Hemoglobin 11.2 GM/DL (14.0-18.0); Immature Granulocytes % 6.1 %; Immature Granulocytes Absolute 0.95 #; Lymphocytes # 0.3 10*3/uL (1.4-4.0); Lymphocytes % 2.1 % (21.2-54.2); Mean Corpuscular HGB Conc 31.8 GM/DL (32-36); Mean Corpuscular Volume 104.5 FL (87-102); Mean Platelet Volume 9.5 FL (9.6-12.0); Monocytes # 0.6 10*3/uL (0.11-0.8); Monocytes % 4.1 % (1.7-12.7); Neutrophils % 87.3 % (38.7-73.9); Platelet Count 123 T/CUMM (130-400); Red Blood Count 3.37 MC/CUMM (3.8-5.5); Red Cell Distribution Width 16.8 % (9.3-17.3); White Blood Count 15.7 T/CUMM (4-12)
[2021-12-06 05:46] LABS: Albumin 2.6 G/DL (3.4-5.0); Bilirubin,Total 0.4 MG/DL (0.20-1.00); Calcium 8.6 MG/DL (8.5-10.1); Osmolality,Calculated 280.8 MOS/KG (273-304); Potassium 4.1 MMOL/L (3.5-5.1); Total Protein 5.7 G/DL (6.4-8.2)
[2021-12-06 05:53] LABS: Lymphocytes 3 % (20-55); Platelet Estimate Normal; Total Cells Counted 100
[2021-12-06] MEDS: BUDESONIDE 0.5 MG/2 ML NEB RESP TX SCH (07:20)
[2021-12-06] MEDS: GABAPENTIN 100 MG CAPSULE PO SCH (09:58)
[2021-12-06] MEDS: TAMSULOSIN 0.4 MG CAPSULE PO SCH (09:58)
[2021-12-06] MEDS: SODIUM CHLORIDE 0.9% 1,000 ML IV SCH (09:58)
[2021-12-06] MEDS: CYANOCOBALAMIN 500 MCG TABLET PO SCH (09:59)
[2021-12-06] MEDS: oxyCODONE ER 20 MG TABLET PO SCH (09:59)
[2021-12-06] MEDS: DOCUSATE SODIUM 100 MG CAPSULE PO SCH (09:59)
[2021-12-06] MEDS: CHOLECALCIFEROL 400 UNIT TABLET PO SCH (09:59)
[2021-12-06] MEDS: PANTOPRAZOLE 40 MG TABLET PO SCH (10:00)
[2021-12-06] MEDS: AZITHROMYCIN 250 MG TABLET PO SCH (10:00)
[2021-12-06] MEDS: predniSONE 20 MG TABLET PO SCH (10:00)
[2021-12-06] MEDS: (Fluticasone-Umeclidin-Vilanter [Trelegy Ellipta] 100-62.5-25 mcg INH SCH (10:03)
[2021-12-06 11:29] VITALS: BP 107/56
== END 2021-12-06 14:20 | disposition hospice, home (50) | DRG 190 ==
LOC: N.ED 22:42 → N.EDINP 22:42 → SUATTDRO 12-02 01:48 → N.5E 12-02 13:58
PROVIDERS: ADMIT Family Medicine; ATTEND Internal Medicine

== ENCOUNTER 2022-01-28 17:29 | Inpatient (IN) ==
[2022-01-28 19:03] LABS: Basophils % 0.1 % (0.0-0.8); Hematocrit 38.2 VOL% (42.0-52.0); Immature Granulocytes % 2.1 %; Lymphocytes # 0.5 10*3/uL (1.4-4.0); Lymphocytes % 3.5 % (21.2-54.2); Mean Platelet Volume 8.8 FL (9.6-12.0); Neutrophils % 87.3 % (38.7-73.9); Platelet Count 160 T/CUMM (130-400); Red Blood Count 3.71 MC/CUMM (3.8-5.5); Red Cell Distribution Width 15.1 % (9.3-17.3); White Blood Count 14.1 T/CUMM (4-12)
[2022-01-28 19:13] LABS: PT Patient Result 10.9 SECS (10.1-12.1); Partial Thromboplastin Time 28.1 SECS (23.7-32.9)
[2022-01-28 19:23] LABS: Albumin 3.3 G/DL (3.4-5.0); Bilirubin,Total 0.4 MG/DL (0.20-1.00); Calcium 8.8 MG/DL (8.5-10.1); Osmolality,Calculated 283.5 MOS/KG (273-304); Potassium 3.8 MMOL/L (3.5-5.1); Total Protein 6.1 G/DL (6.4-8.2)
[2022-01-28 19:39] LABS: Band Neutrophils 1 % (0-10); Lymphocytes 5 % (20-55); Total Cells Counted 100
[2022-01-28 19:41] LABS: Platelet Estimate Normal; Reactive Lymphocytes Slight
[2022-01-28] MEDS ORDERED: SODIUM CHLORIDE 0.9% 2,000 ML IV STA (19:58)
[2022-01-28] MEDS ORDERED: LEVOFLOXACIN INJ 500 MG/100 ML PREMIX IV ONE (19:58)
[2022-01-28 20:09] LABS: Bilirubin,Urine Negative (Negative); Blood, Urine Negative (Negative); Glucose,Urine (UA) Negative (Negative); Ketones,Urine Negative (Negative); Mucus,Urine Occasional /LPF (Occasional); Nitrite,Urine Negative (Negative); Protein,Urine 30 mg/dL (Negative); RBC,Urine <1 /HPF (0-4); Urine Appearance CLEAR (Clear); Urine Color Yellow (Yellow); Urine Specific Gravity 1.015 (1.001-1.035); Urine Urobilinogen < 2.0 eU/dL (<2.0)
[2022-01-28] MEDS ORDERED: ONDANSETRON 4 MG/2 ML VIAL IV STA (20:30)
[2022-01-28] MEDS ORDERED: fentaNYL 100 MCG/2 ML VIAL IV STA (20:30)
[2022-01-29] MEDS ORDERED: hydrALAZINE 20 MG/1 ML VIAL IV PRN (00:04)
[2022-01-29] MEDS ORDERED: NICOTINE 21 MG/24 HR PATCH TRANSDERM PRN (00:04)
[2022-01-29] MEDS ORDERED: ONDANSETRON 4 MG/2 ML VIAL IV PRN (00:04)
[2022-01-29] MEDS: ALBUTEROL/IPRATROPIUM 3 ML NEB RESP TX SCH ×7 (00:30→23:40)
[2022-01-29] MEDS: VANCOMYCIN INJ 1,250 MG in SODIUM CHLORIDE 0.9% 250 ML IV SCH ×2 (00:54→13:38)
[2022-01-29] MEDS: SODIUM CHLORIDE 0.9% 1,000 ML IV SCH ×2 (03:31→15:10)
[2022-01-29] MEDS: PIPERACILLIN/TAZOBACTAM 3,375 MG in SODIUM CHLORIDE 0.9% 100 ML IV SCH ×3 (03:32→20:42)
[2022-01-29 04:49] LABS: Basophils % 0.3 % (0.0-0.8); Eosinophils % 0.2 % (0.00-10.9); Hematocrit 36.1 VOL% (42.0-52.0); Hemoglobin 11.7 GM/DL (14.0-18.0); Immature Granulocytes % 1.9 %; Immature Granulocytes Absolute 0.23 #; Lymphocytes # 0.7 10*3/uL (1.4-4.0); Lymphocytes % 5.8 % (21.2-54.2); Mean Corpuscular HGB Conc 32.4 GM/DL (32-36); Mean Corpuscular Volume 107.8 FL (87-102); Mean Platelet Volume 9.1 FL (9.6-12.0); Monocytes # 1.1 10*3/uL (0.11-0.8); Monocytes % 8.6 % (1.7-12.7); Neutrophils % 83.2 % (38.7-73.9); Platelet Count 145 T/CUMM (130-400); Red Blood Count 3.35 MC/CUMM (3.8-5.5); Red Cell Distribution Width 15.4 % (9.3-17.3); White Blood Count 12.3 T/CUMM (4-12)
[2022-01-29 05:03] LABS: Calcium 8.1 MG/DL (8.5-10.1); Osmolality,Calculated 278.5 MOS/KG (273-304); Potassium 3.6 MMOL/L (3.5-5.1)
[2022-01-29] MEDS: PANTOPRAZOLE 40 MG TABLET PO SCH (09:33)
[2022-01-29] MEDS: POTASSIUM CHLORIDE 10 MEQ TABLET PO SCH (09:33)
[2022-01-29] MEDS: TAMSULOSIN 0.4 MG CAPSULE PO SCH ×2 (09:33→20:42)
[2022-01-29] MEDS: FINASTERIDE 5 MG TABLET PO SCH (20:43)
[2022-01-30] MEDS: VANCOMYCIN INJ 1,250 MG in SODIUM CHLORIDE 0.9% 250 ML IV SCH ×3 (02:20→15:08)
[2022-01-30] MEDS: ALBUTEROL/IPRATROPIUM 3 ML NEB RESP TX SCH ×5 (03:25→19:15)
[2022-01-30] MEDS: PIPERACILLIN/TAZOBACTAM 3,375 MG in SODIUM CHLORIDE 0.9% 100 ML IV SCH ×3 (04:06→21:34)
[2022-01-30] MEDS: ACETAMINOPHEN 325 MG TABLET PO PRN (05:05)
[2022-01-30 05:07] LABS: Basophils % 0.2 % (0.0-0.8); Eosinophils % 0.3 % (0.00-10.9); Hemoglobin 12.3 GM/DL (14.0-18.0); Immature Granulocytes % 1.2 %; Immature Granulocytes Absolute 0.15 #; Lymphocytes # 0.4 10*3/uL (1.4-4.0); Lymphocytes % 3.3 % (21.2-54.2); Mean Corpuscular HGB Conc 32.4 GM/DL (32-36); Mean Corpuscular Volume 108.9 FL (87-102); Mean Platelet Volume 9.1 FL (9.6-12.0); Monocytes # 0.8 10*3/uL (0.11-0.8); Monocytes % 6.7 % (1.7-12.7); Neutrophils % 88.3 % (38.7-73.9); Platelet Count 139 T/CUMM (130-400); Red Blood Count 3.49 MC/CUMM (3.8-5.5); Red Cell Distribution Width 15.6 % (9.3-17.3); White Blood Count 12.2 T/CUMM (4-12)
[2022-01-30] MEDS: SODIUM CHLORIDE 0.9% 1,000 ML IV SCH (05:08)
[2022-01-30 05:34] LABS: Calcium 8.3 MG/DL (8.5-10.1); Osmolality,Calculated 292.7 MOS/KG (273-304)
[2022-01-30 05:50] LABS: Band Neutrophils 1 % (0-10); Eosinophils 1 % (0-10); Lymphocytes 1 % (20-55); Platelet Estimate Normal; Total Cells Counted 100
[2022-01-30] MEDS: PANTOPRAZOLE 40 MG TABLET PO SCH (09:33)
[2022-01-30] MEDS: POTASSIUM CHLORIDE 10 MEQ TABLET PO SCH (09:33)
[2022-01-30] MEDS: TAMSULOSIN 0.4 MG CAPSULE PO SCH ×2 (09:36→21:35)
[2022-01-30] MEDS: methylPREDNISolone SOD SUC 40 MG/1 ML VIAL IV SCH (15:07)
[2022-01-30] MEDS: FINASTERIDE 5 MG TABLET PO SCH (21:35)
[2022-01-31] MEDS: SODIUM CHLORIDE 0.9% 1,000 ML IV SCH ×2 (00:10→11:31)
[2022-01-31] MEDS: ALBUTEROL/IPRATROPIUM 3 ML NEB RESP TX SCH ×7 (00:35→23:12)
[2022-01-31] MEDS: methylPREDNISolone SOD SUC 40 MG/1 ML VIAL IV SCH ×2 (00:57→15:54)
[2022-01-31 06:22] LABS: Calcium 8.3 MG/DL (8.5-10.1); Osmolality,Calculated 291.8 MOS/KG (273-304); Potassium 3.9 MMOL/L (3.5-5.1)
[2022-01-31 07:01] LABS: Basophils % 0.1 % (0.0-0.8); Hematocrit 32.6 VOL% (42.0-52.0); Hemoglobin 10.8 GM/DL (14.0-18.0); Immature Granulocytes % 0.9 %; Immature Granulocytes Absolute 0.09 #; Lymphocytes # 0.1 10*3/uL (1.4-4.0); Lymphocytes % 0.9 % (21.2-54.2); Mean Corpuscular HGB Conc 33.1 GM/DL (32-36); Mean Corpuscular Volume 106.2 FL (87-102); Mean Platelet Volume 9.4 FL (9.6-12.0); Monocytes # 0.1 10*3/uL (0.11-0.8); Monocytes % 1.1 % (1.7-12.7); Platelet Count 130 T/CUMM (130-400); Red Blood Count 3.07 MC/CUMM (3.8-5.5); Red Cell Distribution Width 15.5 % (9.3-17.3); White Blood Count 10.4 T/CUMM (4-12)
[2022-01-31 07:30] LABS: Lymphocytes 2 % (20-55); Platelet Estimate Normal; Total Cells Counted 100
[2022-01-31] MEDS: PIPERACILLIN/TAZOBACTAM 3,375 MG in SODIUM CHLORIDE 0.9% 100 ML IV SCH ×2 (07:30→16:08)
[2022-01-31] MEDS: TAMSULOSIN 0.4 MG CAPSULE PO SCH ×2 (08:21→20:05)
[2022-01-31] MEDS: PANTOPRAZOLE 40 MG TABLET PO SCH (08:21)
[2022-01-31] MEDS: POTASSIUM CHLORIDE 10 MEQ TABLET PO SCH (11:35)
[2022-01-31] MEDS: FLUTICASONE/SALMETEROL 500-50 DISKUS 14 DOSE INH SCH ×2 (11:36→20:14)
[2022-01-31] MEDS: oxyCODONE/ACETAMINOPHEN 5-325 MG TABLET PO PRN ×2 (15:59→21:42)
[2022-01-31] MEDS: LOPERAMIDE 2 MG CAPSULE PO PRN (20:05)
[2022-01-31] MEDS: FINASTERIDE 5 MG TABLET PO SCH (20:06)
[2022-02-01] MEDS: ALBUTEROL/IPRATROPIUM 3 ML NEB RESP TX SCH ×5 (00:15→21:00)
[2022-02-01] MEDS: PIPERACILLIN/TAZOBACTAM 3,375 MG in SODIUM CHLORIDE 0.9% 100 ML IV SCH ×2 (00:57→09:09)
[2022-02-01] MEDS: methylPREDNISolone SOD SUC 40 MG/1 ML VIAL IV SCH ×2 (00:57→21:27)
[2022-02-01] MEDS: SODIUM CHLORIDE 0.9% 1,000 ML IV SCH ×2 (01:00→15:49)
[2022-02-01 04:59] LABS: Basophils % 0.1 % (0.0-0.8); Hematocrit 34.7 VOL% (42.0-52.0); Hemoglobin 10.9 GM/DL (14.0-18.0); Immature Granulocytes % 1.4 %; Immature Granulocytes Absolute 0.21 #; Lymphocytes # 0.2 10*3/uL (1.4-4.0); Lymphocytes % 1.5 % (21.2-54.2); Mean Corpuscular HGB Conc 31.4 GM/DL (32-36); Mean Corpuscular Volume 111.2 FL (87-102); Mean Platelet Volume 9.2 FL (9.6-12.0); Monocytes # 0.2 10*3/uL (0.11-0.8); Monocytes % 1.5 % (1.7-12.7); Neutrophils % 95.5 % (38.7-73.9); Platelet Count 142 T/CUMM (130-400); Red Blood Count 3.12 MC/CUMM (3.8-5.5); Red Cell Distribution Width 15.4 % (9.3-17.3)
[2022-02-01 05:25] LABS: Band Neutrophils 2 % (0-10); Calcium 8.6 MG/DL (8.5-10.1); Lymphocytes 1 % (20-55); Osmolality,Calculated 295.7 MOS/KG (273-304); Platelet Estimate Adequate; Potassium 3.8 MMOL/L (3.5-5.1); Total Cells Counted 100
[2022-02-01] MEDS: oxyCODONE/ACETAMINOPHEN 5-325 MG TABLET PO PRN ×3 (06:26→18:47)
[2022-02-01] MEDS: POTASSIUM CHLORIDE 10 MEQ TABLET PO SCH (09:09)
[2022-02-01] MEDS: TAMSULOSIN 0.4 MG CAPSULE PO SCH ×2 (09:10→21:26)
[2022-02-01] MEDS: PANTOPRAZOLE 40 MG TABLET PO SCH (09:10)
[2022-02-01] MEDS: FLUTICASONE/SALMETEROL 500-50 DISKUS 14 DOSE INH SCH ×2 (09:10→21:31)
[2022-02-01] MEDS: LIDOCAINE 5% PATCH TRANSDERM SCH (12:41)
[2022-02-01] MEDS: FINASTERIDE 5 MG TABLET PO SCH (21:26)
[2022-02-01] MEDS: ACETAMINOPHEN 325 MG TABLET PO PRN (21:30)
[2022-02-02] MEDS: oxyCODONE/ACETAMINOPHEN 5-325 MG TABLET PO PRN ×4 (00:11→21:18)
[2022-02-02] MEDS: diphenhydrAMINE CAP 25 MG CAPSULE PO PRN ×2 (00:11→21:17)
[2022-02-02] MEDS: ALBUTEROL/IPRATROPIUM 3 ML NEB RESP TX SCH ×6 (00:58→19:24)
[2022-02-02] MEDS: PIPERACILLIN/TAZOBACTAM 3,375 MG in SODIUM CHLORIDE 0.9% 100 ML IV SCH ×3 (03:54→17:17)
[2022-02-02 04:59] LABS: Basophils % 0.1 % (0.0-0.8); Hematocrit 34.6 VOL% (42.0-52.0); Hemoglobin 11.2 GM/DL (14.0-18.0); Immature Granulocytes % 2.9 %; Immature Granulocytes Absolute 0.36 #; Lymphocytes # 0.2 10*3/uL (1.4-4.0); Lymphocytes % 1.8 % (21.2-54.2); Mean Corpuscular HGB Conc 32.4 GM/DL (32-36); Mean Corpuscular Volume 107.1 FL (87-102); Mean Platelet Volume 9.4 FL (9.6-12.0); Monocytes # 0.3 10*3/uL (0.11-0.8); Monocytes % 2.2 % (1.7-12.7); Platelet Count 145 T/CUMM (130-400); Red Blood Count 3.23 MC/CUMM (3.8-5.5); White Blood Count 12.3 T/CUMM (4-12)
[2022-02-02 05:18] LABS: Calcium 8.7 MG/DL (8.5-10.1); Osmolality,Calculated 289.3 MOS/KG (273-304); Potassium 4.1 MMOL/L (3.5-5.1)
[2022-02-02 05:20] LABS: Lymphocytes 2 % (20-55); Total Cells Counted 100
[2022-02-02 05:21] LABS: Macrocytosis Slight
[2022-02-02] MEDS: methylPREDNISolone SOD SUC 40 MG/1 ML VIAL IV SCH ×2 (08:04→21:17)
[2022-02-02] MEDS: TAMSULOSIN 0.4 MG CAPSULE PO SCH ×2 (08:05→21:17)
[2022-02-02] MEDS: LIDOCAINE 5% PATCH TRANSDERM SCH (08:05)
[2022-02-02] MEDS: FLUTICASONE/SALMETEROL 500-50 DISKUS 14 DOSE INH SCH ×2 (08:05→21:18)
[2022-02-02] MEDS: POTASSIUM CHLORIDE 10 MEQ TABLET PO SCH (08:05)
[2022-02-02] MEDS: PANTOPRAZOLE 40 MG TABLET PO SCH (08:05)
[2022-02-02] MEDS: SODIUM CHLORIDE 0.9% 1,000 ML IV SCH (08:05)
[2022-02-02] MEDS ORDERED: KETOROLAC 15 MG/1 ML VIAL IV ONE (17:04)
[2022-02-02] MEDS: LOPERAMIDE 2 MG CAPSULE PO PRN (21:17)
[2022-02-02] MEDS: FINASTERIDE 5 MG TABLET PO SCH (21:17)
[2022-02-02] MEDS: ZINC OXIDE PASTE 113 GM TUBE TOP SCH (21:18)
[2022-02-03] MEDS: PIPERACILLIN/TAZOBACTAM 3,375 MG in SODIUM CHLORIDE 0.9% 100 ML IV SCH ×3 (03:29→18:01)
[2022-02-03] MEDS: ALBUTEROL/IPRATROPIUM 3 ML NEB RESP TX SCH ×7 (04:37→23:56)
[2022-02-03 05:03] LABS: Basophils # 0.1 10*3/uL (0.0-0.2); Basophils % 0.5 % (0.0-0.8); Hematocrit 34.6 VOL% (42.0-52.0); Hemoglobin 11.2 GM/DL (14.0-18.0); Immature Granulocytes % 5.2 %; Immature Granulocytes Absolute 0.64 #; Lymphocytes # 0.4 10*3/uL (1.4-4.0); Lymphocytes % 2.9 % (21.2-54.2); Mean Corpuscular HGB Conc 32.4 GM/DL (32-36); Mean Corpuscular Volume 108.5 FL (87-102); Mean Platelet Volume 9.4 FL (9.6-12.0); Monocytes # 0.4 10*3/uL (0.11-0.8); Monocytes % 3.6 % (1.7-12.7); Neutrophils % 87.8 % (38.7-73.9); Platelet Count 143 T/CUMM (130-400); Red Blood Count 3.19 MC/CUMM (3.8-5.5); Red Cell Distribution Width 14.9 % (9.3-17.3); White Blood Count 12.3 T/CUMM (4-12)
[2022-02-03 05:18] LABS: Calcium 8.7 MG/DL (8.5-10.1); Osmolality,Calculated 284.4 MOS/KG (273-304); Potassium 4.5 MMOL/L (3.5-5.1)
[2022-02-03 05:23] LABS: Band Neutrophils 1 % (0-10); Lymphocytes 4 % (20-55); Nucleated Red Blood Cells 1 /100 WBC (0-5); Platelet Estimate Adequate; Total Cells Counted 100
[2022-02-03] MEDS: POTASSIUM CHLORIDE 10 MEQ TABLET PO SCH (10:01)
[2022-02-03] MEDS: LIDOCAINE 5% PATCH TRANSDERM SCH (10:01)
[2022-02-03] MEDS: TAMSULOSIN 0.4 MG CAPSULE PO SCH ×2 (10:02→21:44)
[2022-02-03] MEDS: PANTOPRAZOLE 40 MG TABLET PO SCH (10:02)
[2022-02-03] MEDS: methylPREDNISolone SOD SUC 40 MG/1 ML VIAL IV SCH ×2 (10:03→21:44)
[2022-02-03] MEDS: FLUTICASONE/SALMETEROL 500-50 DISKUS 14 DOSE INH SCH ×2 (10:03→21:46)
[2022-02-03] MEDS: SODIUM CHLORIDE 0.9% 1,000 ML IV SCH ×2 (10:09→15:17)
[2022-02-03] MEDS: ZINC OXIDE PASTE 113 GM TUBE TOP SCH ×2 (11:29→21:47)
[2022-02-03] MEDS: oxyCODONE IR 5 MG TABLET PO SCH ×2 (14:50→21:45)
[2022-02-03] MEDS: oxyCODONE/ACETAMINOPHEN 5-325 MG TABLET PO PRN (18:02)
[2022-02-03] MEDS: LOPERAMIDE 2 MG CAPSULE PO PRN (21:44)
[2022-02-03] MEDS: FINASTERIDE 5 MG TABLET PO SCH (21:45)
[2022-02-03] MEDS: diphenhydrAMINE CAP 25 MG CAPSULE PO PRN (21:45)
[2022-02-04] MEDS: oxyCODONE/ACETAMINOPHEN 5-325 MG TABLET PO PRN ×3 (00:15→21:58)
[2022-02-04] MEDS: PIPERACILLIN/TAZOBACTAM 3,375 MG in SODIUM CHLORIDE 0.9% 100 ML IV SCH (04:04)
[2022-02-04] MEDS: oxyCODONE IR 5 MG TABLET PO SCH ×3 (04:05→22:14)
[2022-02-04] MEDS: ALBUTEROL/IPRATROPIUM 3 ML NEB RESP TX SCH ×5 (05:02→23:53)
[2022-02-04 08:58] LABS: Basophils # 0.1 10*3/uL (0.0-0.2); Basophils % 0.5 % (0.0-0.8); Eosinophils % 0.1 % (0.00-10.9); Hematocrit 37.8 VOL% (42.0-52.0); Hemoglobin 12.2 GM/DL (14.0-18.0); Immature Granulocytes Absolute 1.23 #; Lymphocytes # 0.6 10*3/uL (1.4-4.0); Lymphocytes % 4.5 % (21.2-54.2); Mean Corpuscular HGB Conc 32.3 GM/DL (32-36); Mean Platelet Volume 9.4 FL (9.6-12.0); Monocytes # 1.1 10*3/uL (0.11-0.8); Monocytes % 7.9 % (1.7-12.7); NRBC # 0.05 10*3/uL; Platelet Count 163 T/CUMM (130-400); Red Cell Distribution Width 15.4 % (9.3-17.3); White Blood Count 13.7 T/CUMM (4-12)
[2022-02-04 09:16] LABS: Calcium 8.3 MG/DL (8.5-10.1); Osmolality,Calculated 294.3 MOS/KG (273-304); Potassium 4.2 MMOL/L (3.5-5.1)
[2022-02-04 09:22] LABS: Hypochromia Slight; Lymphocytes 8 % (20-55); Nucleated Red Blood Cells 1 /100 WBC (0-5); Total Cells Counted 100
[2022-02-04 09:23] LABS: Macrocytosis Slight; Platelet Estimate Adequate
[2022-02-04] MEDS: TAMSULOSIN 0.4 MG CAPSULE PO SCH ×2 (10:02→22:15)
[2022-02-04] MEDS: POTASSIUM CHLORIDE 10 MEQ TABLET PO SCH (10:03)
[2022-02-04] MEDS: PANTOPRAZOLE 40 MG TABLET PO SCH (10:03)
[2022-02-04] MEDS: methylPREDNISolone SOD SUC 40 MG/1 ML VIAL IV SCH ×2 (10:06→22:16)
[2022-02-04] MEDS: LIDOCAINE 5% PATCH TRANSDERM SCH (10:07)
[2022-02-04] MEDS: ZINC OXIDE PASTE 113 GM TUBE TOP SCH ×2 (10:07→22:53)
[2022-02-04] MEDS: FLUTICASONE/SALMETEROL 500-50 DISKUS 14 DOSE INH SCH ×2 (10:09→22:53)
[2022-02-04] MEDS: SODIUM CHLORIDE 0.9% 1,000 ML IV SCH ×2 (13:57)
[2022-02-04] MEDS: FINASTERIDE 5 MG TABLET PO SCH (22:14)
[2022-02-05] MEDS: diphenhydrAMINE CAP 25 MG CAPSULE PO PRN (01:23)
[2022-02-05] MEDS: ALBUTEROL/IPRATROPIUM 3 ML NEB RESP TX SCH ×6 (03:48→23:38)
[2022-02-05] MEDS: SODIUM CHLORIDE 0.9% 1,000 ML IV SCH ×2 (04:18→20:55)
[2022-02-05] MEDS: oxyCODONE IR 5 MG TABLET PO SCH ×3 (04:19→20:49)
[2022-02-05 05:49] LABS: Basophils % 0.3 % (0.0-0.8); Eosinophils % 0.1 % (0.00-10.9); Hematocrit 36.7 VOL% (42.0-52.0); Hemoglobin 11.8 GM/DL (14.0-18.0); Immature Granulocytes % 11.9 %; Immature Granulocytes Absolute 1.69 #; Lymphocytes # 0.6 10*3/uL (1.4-4.0); Lymphocytes % 4.1 % (21.2-54.2); Mean Corpuscular HGB Conc 32.2 GM/DL (32-36); Mean Corpuscular Volume 108.9 FL (87-102); Mean Platelet Volume 9.6 FL (9.6-12.0); Monocytes # 0.7 10*3/uL (0.11-0.8); Monocytes % 4.6 % (1.7-12.7); NRBC # 0.03 10*3/uL; Platelet Count 166 T/CUMM (130-400); Red Blood Count 3.37 MC/CUMM (3.8-5.5); Red Cell Distribution Width 15.2 % (9.3-17.3); White Blood Count 14.2 T/CUMM (4-12)
[2022-02-05 05:54] LABS: Calcium 8.8 MG/DL (8.5-10.1); Osmolality,Calculated 292.1 MOS/KG (273-304); Potassium 4.3 MMOL/L (3.5-5.1)
[2022-02-05 06:48] LABS: Band Neutrophils 7 % (0-10); Lymphocytes 9 % (20-55); Platelet Estimate Normal; Total Cells Counted 100
[2022-02-05 06:49] LABS: Anisocytosis 1+; Macrocytosis 1+
[2022-02-05] MEDS: methylPREDNISolone SOD SUC 40 MG/1 ML VIAL IV SCH ×2 (09:52→20:49)
[2022-02-05] MEDS: POTASSIUM CHLORIDE 10 MEQ TABLET PO SCH (09:55)
[2022-02-05] MEDS: TAMSULOSIN 0.4 MG CAPSULE PO SCH ×2 (09:55→20:49)
[2022-02-05] MEDS: PANTOPRAZOLE 40 MG TABLET PO SCH (09:56)
[2022-02-05] MEDS: LIDOCAINE 5% PATCH TRANSDERM SCH (09:59)
[2022-02-05] MEDS: FLUTICASONE/SALMETEROL 500-50 DISKUS 14 DOSE INH SCH ×2 (10:01→20:50)
[2022-02-05] MEDS: ZINC OXIDE PASTE 113 GM TUBE TOP SCH ×2 (10:01→20:54)
[2022-02-05] MEDS: FINASTERIDE 5 MG TABLET PO SCH (20:49)
[2022-02-05] MEDS: guaiFENesin/DM ER 600-30 MG TABLET PO PRN (20:49)
[2022-02-05] MEDS: LOPERAMIDE 2 MG CAPSULE PO PRN (20:49)
[2022-02-06] MEDS: ALBUTEROL/IPRATROPIUM 3 ML NEB RESP TX SCH ×6 (04:05→23:58)
[2022-02-06] MEDS: oxyCODONE IR 5 MG TABLET PO SCH ×3 (06:08→22:10)
[2022-02-06 07:00] LABS: Basophils # 0.1 10*3/uL (0.0-0.2); Basophils % 0.8 % (0.0-0.8); Eosinophils % 0.1 % (0.00-10.9); Hematocrit 35.8 VOL% (42.0-52.0); Hemoglobin 11.4 GM/DL (14.0-18.0); Immature Granulocytes % 12.5 %; Immature Granulocytes Absolute 1.76 #; Lymphocytes # 0.7 10*3/uL (1.4-4.0); Mean Corpuscular HGB Conc 31.8 GM/DL (32-36); Mean Corpuscular Volume 108.5 FL (87-102); Mean Platelet Volume 9.3 FL (9.6-12.0); Monocytes # 0.8 10*3/uL (0.11-0.8); Monocytes % 5.5 % (1.7-12.7); NRBC # 0.04 10*3/uL; Neutrophils % 76.1 % (38.7-73.9); Platelet Count 166 T/CUMM (130-400); Red Cell Distribution Width 15.7 % (9.3-17.3); White Blood Count 14.1 T/CUMM (4-12)
[2022-02-06 07:11] LABS: Calcium 8.7 MG/DL (8.5-10.1); Osmolality,Calculated 284.4 MOS/KG (273-304); Potassium 4.2 MMOL/L (3.5-5.1)
[2022-02-06 07:22] LABS: Band Neutrophils 2 % (0-10); Lymphocytes 16 % (20-55); Metamyelocytes 1 %; Myelocytes 2 %; Nucleated Red Blood Cells 1 /100 WBC (0-5); Platelet Estimate Normal; Total Cells Counted 100
[2022-02-06 07:23] LABS: Anisocytosis 1+; Atypical Lymphocytes Few; Macrocytosis Slight; Spherocytes Few
[2022-02-06] MEDS: PANTOPRAZOLE 40 MG TABLET PO SCH (09:58)
[2022-02-06] MEDS: POTASSIUM CHLORIDE 10 MEQ TABLET PO SCH (09:58)
[2022-02-06] MEDS: methylPREDNISolone SOD SUC 40 MG/1 ML VIAL IV SCH ×2 (09:59→22:11)
[2022-02-06] MEDS: FLUTICASONE/SALMETEROL 500-50 DISKUS 14 DOSE INH SCH ×2 (10:00→22:11)
[2022-02-06] MEDS: SODIUM CHLORIDE 0.9% 1,000 ML IV SCH ×2 (10:00→22:10)
[2022-02-06] MEDS: LIDOCAINE 5% PATCH TRANSDERM SCH (10:01)
[2022-02-06] MEDS: TAMSULOSIN 0.4 MG CAPSULE PO SCH ×2 (10:02→22:11)
[2022-02-06] MEDS: ZINC OXIDE PASTE 113 GM TUBE TOP SCH ×2 (13:21→22:11)
[2022-02-06] MEDS: guaiFENesin/DM ER 600-30 MG TABLET PO PRN (22:10)
[2022-02-06] MEDS: FINASTERIDE 5 MG TABLET PO SCH (22:10)
[2022-02-07] MEDS: ALBUTEROL/IPRATROPIUM 3 ML NEB RESP TX SCH ×7 (03:10→23:26)
[2022-02-07] MEDS: oxyCODONE IR 5 MG TABLET PO SCH ×3 (04:00→20:30)
[2022-02-07 05:27] LABS: Basophils # 0.1 10*3/uL (0.0-0.2); Basophils % 0.6 % (0.0-0.8); Eosinophils % 0.1 % (0.00-10.9); Hematocrit 35.1 VOL% (42.0-52.0); Hemoglobin 11.2 GM/DL (14.0-18.0); Immature Granulocytes % 12.5 %; Immature Granulocytes Absolute 2.17 #; Lymphocytes # 0.7 10*3/uL (1.4-4.0); Lymphocytes % 4.1 % (21.2-54.2); Mean Corpuscular HGB Conc 31.9 GM/DL (32-36); Mean Corpuscular Volume 107.7 FL (87-102); Mean Platelet Volume 9.2 FL (9.6-12.0); Monocytes # 0.6 10*3/uL (0.11-0.8); Monocytes % 3.4 % (1.7-12.7); NRBC # 0.04 10*3/uL; Neutrophils % 79.3 % (38.7-73.9); Platelet Count 161 T/CUMM (130-400); Red Blood Count 3.26 MC/CUMM (3.8-5.5); Red Cell Distribution Width 15.4 % (9.3-17.3); White Blood Count 17.3 T/CUMM (4-12)
[2022-02-07 05:51] LABS: Calcium 8.7 MG/DL (8.5-10.1); Osmolality,Calculated 282.7 MOS/KG (273-304); Potassium 4.4 MMOL/L (3.5-5.1)
[2022-02-07 06:09] LABS: Band Neutrophils 2 % (0-10); Lymphocytes 6 % (20-55); Myelocytes 2 %; Total Cells Counted 100
[2022-02-07 06:10] LABS: Macrocytosis Slight; Polychromasia Slight
[2022-02-07 06:11] LABS: Platelet Estimate Adequate
[2022-02-07] MEDS: POTASSIUM CHLORIDE 10 MEQ TABLET PO SCH (09:57)
[2022-02-07] MEDS: guaiFENesin/DM ER 600-30 MG TABLET PO PRN (09:57)
[2022-02-07] MEDS: PANTOPRAZOLE 40 MG TABLET PO SCH (09:57)
[2022-02-07] MEDS: LIDOCAINE 5% PATCH TRANSDERM SCH (09:57)
[2022-02-07] MEDS: TAMSULOSIN 0.4 MG CAPSULE PO SCH ×2 (09:57→20:29)
[2022-02-07] MEDS: methylPREDNISolone SOD SUC 40 MG/1 ML VIAL IV SCH (09:58)
[2022-02-07] MEDS: FLUTICASONE/SALMETEROL 500-50 DISKUS 14 DOSE INH SCH ×2 (10:02→20:29)
[2022-02-07] MEDS: ZINC OXIDE PASTE 113 GM TUBE TOP SCH ×2 (10:03→20:32)
[2022-02-07] MEDS ORDERED: TUBERCULIN SKIN TEST 0.1 ML SYRINGE INTRADERM ONE (12:39)
[2022-02-07] MEDS: SODIUM CHLORIDE 0.9% 1,000 ML IV SCH (14:49)
[2022-02-07] MEDS: FINASTERIDE 5 MG TABLET PO SCH (20:29)
[2022-02-08] MEDS: ALBUTEROL/IPRATROPIUM 3 ML NEB RESP TX SCH ×2 (02:52→07:17)
[2022-02-08] MEDS: oxyCODONE IR 5 MG TABLET PO SCH (04:44)
[2022-02-08] MEDS: SODIUM CHLORIDE 0.9% 1,000 ML IV SCH (05:08)
[2022-02-08 07:49] VITALS: BP 117/70
[2022-02-08] MEDS ORDERED: predniSONE 20 MG TABLET PO SCH (09:00)
[2022-02-08] MEDS: POTASSIUM CHLORIDE 10 MEQ TABLET PO SCH (09:05)
[2022-02-08] MEDS: PANTOPRAZOLE 40 MG TABLET PO SCH (09:05)
[2022-02-08] MEDS: LIDOCAINE 5% PATCH TRANSDERM SCH (09:05)
[2022-02-08] MEDS: FLUTICASONE/SALMETEROL 500-50 DISKUS 14 DOSE INH SCH (09:05)
[2022-02-08] MEDS: ZINC OXIDE PASTE 113 GM TUBE TOP SCH (09:06)
[2022-02-08] MEDS: TAMSULOSIN 0.4 MG CAPSULE PO SCH (09:06)
== END 2022-02-08 10:46 | DRG 542 ==
LOC: EDBD → EDUNIT# → N.ED 17:29 → N.EDINP 17:29 → SUATTDRO 01-29 00:04 → N.2W 01-29 00:36 → N.5E 01-31 17:59
PROVIDERS: ADMIT Internal Medicine; ATTEND Hospitalist

== ENCOUNTER 2022-04-18 19:28 | Inpatient (IN) ==
[2022-04-18] MEDS ORDERED: HYDROmorphone 1 MG/1 ML SYRINGE IV STA (21:06)
[2022-04-18 22:05] LABS: Basophils % 0.1 % (0.0-0.8); Hematocrit 42.5 VOL% (42.0-52.0); Hemoglobin 13.2 GM/DL (14.0-18.0); Immature Granulocytes % 0.2 %; Immature Granulocytes Absolute 0.02 #; Lymphocytes # 0.2 10*3/uL (1.4-4.0); Lymphocytes % 2.4 % (21.2-54.2); Mean Corpuscular HGB Conc 31.1 GM/DL (32-36); Mean Corpuscular Volume 104.7 FL (87-102); Mean Platelet Volume 9.5 FL (9.6-12.0); Monocytes # 0.5 10*3/uL (0.11-0.8); Monocytes % 5.3 % (1.7-12.7); Platelet Count 147 T/CUMM (130-400); Red Blood Count 4.06 MC/CUMM (3.8-5.5); Red Cell Distribution Width 14.6 % (9.3-17.3); White Blood Count 8.9 T/CUMM (4-12)
[2022-04-18] MEDS ORDERED: SODIUM CHLORIDE 0.9% 1,000 ML IV STA (22:15)
[2022-04-18] MEDS ORDERED: DEXAMETHASONE 4 MG/1 ML VIAL IV STA (22:16)
[2022-04-18 22:22] LABS: Albumin 2.8 G/DL (3.4-5.0); Bilirubin,Total 0.4 MG/DL (0.20-1.00); Calcium 8.7 MG/DL (8.5-10.1); Osmolality,Calculated 277.1 MOS/KG (273-304); Total Protein 6.5 G/DL (6.4-8.2)
[2022-04-18 23:39] LABS: Lymphocytes 2 % (20-55); Total Cells Counted 100
[2022-04-18 23:40] LABS: Platelet Estimate Decreased
[2022-04-18 23:45] LABS: Arterial Base Excess iSTAT 6 MMOL/L (-2.5-2.5); Arterial Bicarbonate iSTAT 34.7 MMOL/L (20-26); Arterial O2 Saturation iSTAT 94 % (95-100); Arterial PCO2 iSTAT 68 MM HG (35-48); Arterial PO2 iSTAT 79 MM HG (80-95); Arterial Total CO2 iSTAT 37 MMO/L (23-27); Arterial pH iSTAT 7.318 (7.35-7.45)
[2022-04-18] MEDS ORDERED: ACETAMINOPHEN 325 MG TABLET PO PRN (23:54)
[2022-04-18] MEDS ORDERED: ONDANSETRON 4 MG/2 ML VIAL IV PRN (23:54)
[2022-04-18] MEDS ORDERED: diphenhydrAMINE CAP 25 MG CAPSULE PO PRN (23:54)
[2022-04-18] MEDS ORDERED: hydrALAZINE 20 MG/1 ML VIAL IV PRN (23:54)
[2022-04-18] MEDS ORDERED: NICOTINE 21 MG/24 HR PATCH TRANSDERM PRN (23:54)
[2022-04-18] MEDS ORDERED: guaiFENesin/DM ER 600-30 MG TABLET PO PRN (23:54)
[2022-04-19] MEDS: AZITHROMYCIN INJ 500 MG in SODIUM CHLORIDE 0.9% 250 ML IV SCH ×2 (00:23→23:34)
[2022-04-19] MEDS: ALBUTEROL/IPRATROPIUM 3 ML NEB RESP TX SCH ×5 (00:52→23:58)
[2022-04-19] MEDS ORDERED: REMDESIVIR 200 MG in SODIUM CHLORIDE 0.9% 210 ML IV ONE (01:00)
[2022-04-19 03:25] LABS: Arterial Base Excess iSTAT 7 MMOL/L (-2.5-2.5); Arterial Bicarbonate iSTAT 34.8 MMOL/L (20-26); Arterial O2 Saturation iSTAT 95 % (95-100); Arterial PCO2 iSTAT 64 MM HG (35-48); Arterial PO2 iSTAT 84 MM HG (80-95); Arterial Total CO2 iSTAT 37 MMO/L (23-27); Arterial pH iSTAT 7.342 (7.35-7.45)
[2022-04-19 04:24] LABS: Hematocrit 36.2 VOL% (42.0-52.0); Hemoglobin 11.4 GM/DL (14.0-18.0); Immature Granulocytes % 0.2 %; Immature Granulocytes Absolute 0.01 #; Lymphocytes # 0.2 10*3/uL (1.4-4.0); Lymphocytes % 3.6 % (21.2-54.2); Mean Corpuscular HGB Conc 31.5 GM/DL (32-36); Mean Corpuscular Volume 104.6 FL (87-102); Mean Platelet Volume 10.1 FL (9.6-12.0); Monocytes # 0.2 10*3/uL (0.11-0.8); Neutrophils % 93.2 % (38.7-73.9); Platelet Count 133 T/CUMM (130-400); Red Blood Count 3.46 MC/CUMM (3.8-5.5); Red Cell Distribution Width 14.6 % (9.3-17.3); White Blood Count 5.8 T/CUMM (4-12)
[2022-04-19 04:37] LABS: Calcium 7.9 MG/DL (8.5-10.1); Osmolality,Calculated 284.4 MOS/KG (273-304); Potassium 4.1 MMOL/L (3.5-5.1)
[2022-04-19 04:44] LABS: Lymphocytes 2 % (20-55); Platelet Estimate Normal; Total Cells Counted 100
[2022-04-19 04:45] LABS: Hypochromia Slight
[2022-04-19] MEDS ORDERED: LORazepam 2 MG/1 ML VIAL IV ONE (05:15)
[2022-04-19] MEDS ORDERED: cefTRIAXone 1,000 MG in SODIUM CHLORIDE 0.9% 100 ML IV SCH (06:30)
[2022-04-19 07:48] LABS: Arterial Base Excess iSTAT 7 MMOL/L (-2.5-2.5); Arterial Bicarbonate iSTAT 35.1 MMOL/L (20-26); Arterial O2 Saturation iSTAT 96 % (95-100); Arterial PCO2 iSTAT 71 MM HG (35-48); Arterial PO2 iSTAT 93 MM HG (80-95); Arterial Total CO2 iSTAT 37 MMO/L (23-27); Arterial pH iSTAT 7.304 (7.35-7.45)
[2022-04-19] MEDS ORDERED: DEXAMETHASONE 4 MG/1 ML VIAL IV SCH (09:00)
[2022-04-19] MEDS: DOCUSATE SODIUM 100 MG CAPSULE PO SCH ×2 (10:14→21:30)
[2022-04-19] MEDS: FAMOTIDINE 20 MG TABLET PO SCH ×2 (10:15→21:31)
[2022-04-19] MEDS ORDERED: FUROSEMIDE 40 MG/4 ML VIAL IV ONE (10:41)
[2022-04-19 11:22] LABS: Ferritin 689.5 ng/mL (26-388)
[2022-04-19 12:01] LABS: Arterial Base Excess iSTAT 10 MMOL/L (-2.5-2.5); Arterial Bicarbonate iSTAT 36.8 MMOL/L (20-26); Arterial O2 Saturation iSTAT 99 % (95-100); Arterial PCO2 iSTAT 61 MM HG (35-48); Arterial PO2 iSTAT 125 MM HG (80-95); Arterial Total CO2 iSTAT 39 MMO/L (23-27); Arterial pH iSTAT 7.391 (7.35-7.45)
[2022-04-19] MEDS: busPIRone 10 MG TABLET PO SCH ×2 (17:18→21:30)
[2022-04-19] MEDS: oxyCODONE/ACETAMINOPHEN 5-325 MG TABLET PO PRN (18:42)
[2022-04-19] MEDS: TAMSULOSIN 0.4 MG CAPSULE PO SCH (21:30)
[2022-04-19] MEDS: FINASTERIDE 5 MG TABLET PO SCH (21:31)
[2022-04-19] MEDS: MELATONIN 3 MG TABLET PO SCH (21:31)
[2022-04-19] MEDS ORDERED: SODIUM CHLORIDE 0.9% 500 ML IV ONE (22:00)
[2022-04-19] MEDS ORDERED: LORazepam 2 MG/1 ML VIAL IM ONE (22:00)
[2022-04-20] MEDS ORDERED: VANCOMYCIN INJ 500 MG in SODIUM CHLORIDE 0.9% 100 ML IV SCH
[2022-04-20 02:25] LABS: Basophils % 0.2 % (0.0-0.8); Hematocrit 38.6 VOL% (42.0-52.0); Hemoglobin 12.1 GM/DL (14.0-18.0); Immature Granulocytes % 0.3 %; Immature Granulocytes Absolute 0.02 #; Lymphocytes # 0.4 10*3/uL (1.4-4.0); Lymphocytes % 7.2 % (21.2-54.2); Mean Corpuscular HGB Conc 31.3 GM/DL (32-36); Mean Corpuscular Volume 103.5 FL (87-102); Mean Platelet Volume 9.4 FL (9.6-12.0); Monocytes # 1.1 10*3/uL (0.11-0.8); Monocytes % 19.3 % (1.7-12.7); Platelet Count 153 T/CUMM (130-400); Red Blood Count 3.73 MC/CUMM (3.8-5.5); Red Cell Distribution Width 14.1 % (9.3-17.3); White Blood Count 5.8 T/CUMM (4-12)
[2022-04-20 03:05] LABS: Albumin 2.6 G/DL (3.4-5.0); Bilirubin,Total 0.4 MG/DL (0.20-1.00); Calcium 8.4 MG/DL (8.5-10.1); Potassium 3.3 MMOL/L (3.5-5.1); Total Protein 5.7 G/DL (6.4-8.2)
[2022-04-20] MEDS: ALBUTEROL/IPRATROPIUM 3 ML NEB RESP TX SCH ×6 (03:12→23:04)
[2022-04-20] MEDS ORDERED: POTASSIUM CHLORIDE RIDER 10 MEQ/100 ML PREMIX IV PRN (06:36)
[2022-04-20] MEDS: PIPERACILLIN/TAZOBACTAM 3,375 MG in SODIUM CHLORIDE 0.9% 100 ML IV SCH ×3 (10:53→17:10)
[2022-04-20] MEDS: DEXAMETHASONE 4 MG/1 ML VIAL IV SCH (10:54)
[2022-04-20] MEDS: TAMSULOSIN 0.4 MG CAPSULE PO SCH ×2 (11:50→20:46)
[2022-04-20] MEDS: SERTRALINE 25 MG TABLET PO SCH (11:50)
[2022-04-20] MEDS: FAMOTIDINE 20 MG TABLET PO SCH ×2 (11:50→20:46)
[2022-04-20] MEDS: busPIRone 10 MG TABLET PO SCH ×3 (11:50→20:45)
[2022-04-20] MEDS: DOCUSATE SODIUM 100 MG CAPSULE PO SCH ×2 (11:50→20:46)
[2022-04-20] MEDS: REMDESIVIR 100 MG in SODIUM CHLORIDE 0.9% 100 ML IV SCH (11:51)
[2022-04-20] MEDS: (Fluticasone-Umeclidin-Vilanter [Trelegy Ellipta] 100-62.5-25 mcg INH SCH (12:03)
[2022-04-20] MEDS: ZINC OXIDE 16% PASTE 57 GM TUBE TOP SCH (20:46)
[2022-04-20] MEDS: MELATONIN 3 MG TABLET PO SCH (20:46)
[2022-04-20] MEDS: FINASTERIDE 5 MG TABLET PO SCH (20:46)
[2022-04-20] MEDS: cefTRIAXone 1,000 MG in SODIUM CHLORIDE 0.9% 100 ML IV SCH (21:29)
[2022-04-20] MEDS: AZITHROMYCIN INJ 500 MG in SODIUM CHLORIDE 0.9% 250 ML IV SCH (22:46)
[2022-04-21] MEDS ORDERED: LORazepam 2 MG/1 ML VIAL IV ONE (00:15)
[2022-04-21] MEDS: ALBUTEROL/IPRATROPIUM 3 ML NEB RESP TX SCH ×6 (02:57→22:20)
[2022-04-21 05:45] LABS: Hematocrit 40.7 VOL% (42.0-52.0); Hemoglobin 12.6 GM/DL (14.0-18.0); Immature Granulocytes % 0.6 %; Immature Granulocytes Absolute 0.04 #; Lymphocytes # 0.1 10*3/uL (1.4-4.0); Mean Corpuscular Volume 104.4 FL (87-102); Mean Platelet Volume 9.5 FL (9.6-12.0); Monocytes # 0.6 10*3/uL (0.11-0.8); Monocytes % 8.9 % (1.7-12.7); Neutrophils % 88.5 % (38.7-73.9); Platelet Count 162 T/CUMM (130-400); Red Cell Distribution Width 14.2 % (9.3-17.3); White Blood Count 6.8 T/CUMM (4-12)
[2022-04-21 06:13] LABS: Albumin 3.1 G/DL (3.4-5.0); Bilirubin,Total 0.4 MG/DL (0.20-1.00); Osmolality,Calculated 299.3 MOS/KG (273-304); Potassium 3.8 MMOL/L (3.5-5.1); Total Protein 6.3 G/DL (6.4-8.2)
[2022-04-21 06:14] LABS: Band Neutrophils 1 % (0-10); Hypochromia Slight; Lymphocytes 2 % (20-55); Microcytosis Slight; Platelet Estimate Adequate; Total Cells Counted 100
[2022-04-21] MEDS ORDERED: LIDOCAINE 2% 20 ML VIAL RESP TX ONE (07:30)
[2022-04-21] MEDS ORDERED: LIDOCAINE 1% 20 ML VIAL MISC INJ ONE (07:30)
[2022-04-21] MEDS ORDERED: LIDOCAINE 2% VISCOUS 100 ML BOTTLE SWISH/SPIT ONE (07:30)
[2022-04-21] MEDS ORDERED: MIDAZOLAM 2 MG/2 ML VIAL IV ONE (07:30)
[2022-04-21] MEDS: busPIRone 10 MG TABLET PO SCH ×3 (09:35→22:41)
[2022-04-21] MEDS: FAMOTIDINE 20 MG TABLET PO SCH ×2 (09:35→22:42)
[2022-04-21] MEDS: SERTRALINE 25 MG TABLET PO SCH (09:35)
[2022-04-21] MEDS: DOCUSATE SODIUM 100 MG CAPSULE PO SCH ×2 (09:35→22:46)
[2022-04-21] MEDS: TAMSULOSIN 0.4 MG CAPSULE PO SCH ×2 (09:35→22:42)
[2022-04-21] MEDS: REMDESIVIR 100 MG in SODIUM CHLORIDE 0.9% 100 ML IV SCH (09:36)
[2022-04-21] MEDS: DEXAMETHASONE 4 MG/1 ML VIAL IV SCH (09:37)
[2022-04-21] MEDS: ZINC OXIDE 16% PASTE 57 GM TUBE TOP SCH ×3 (09:43→22:45)
[2022-04-21] MEDS: (Fluticasone-Umeclidin-Vilanter [Trelegy Ellipta] 100-62.5-25 mcg INH SCH (09:43)
[2022-04-21] MEDS: DEXTROSE 5% 1,000 ML IV SCH (13:18)
[2022-04-21] MEDS: ENOXAPARIN 40 MG/0.4 ML SYRINGE SUBCUT SCH (13:19)
[2022-04-21] MEDS: MELATONIN 3 MG TABLET PO SCH (22:42)
[2022-04-21] MEDS: oxyCODONE/ACETAMINOPHEN 5-325 MG TABLET PO PRN (22:42)
[2022-04-21] MEDS: FINASTERIDE 5 MG TABLET PO SCH (22:43)
[2022-04-21] MEDS: cefTRIAXone 1,000 MG in SODIUM CHLORIDE 0.9% 100 ML IV SCH (22:44)
[2022-04-22] MEDS: ALBUTEROL/IPRATROPIUM 3 ML NEB RESP TX SCH ×6 (03:16→23:21)
[2022-04-22 06:24] LABS: Hematocrit 38.7 VOL% (42.0-52.0); Hemoglobin 12.2 GM/DL (14.0-18.0); Immature Granulocytes % 0.3 %; Immature Granulocytes Absolute 0.02 #; Lymphocytes # 0.3 10*3/uL (1.4-4.0); Lymphocytes % 4.6 % (21.2-54.2); Mean Corpuscular HGB Conc 31.5 GM/DL (32-36); Mean Corpuscular Volume 101.8 FL (87-102); Mean Platelet Volume 9.7 FL (9.6-12.0); Monocytes # 0.7 10*3/uL (0.11-0.8); Monocytes % 10.4 % (1.7-12.7); Neutrophils % 84.7 % (38.7-73.9); Platelet Count 151 T/CUMM (130-400); White Blood Count 6.9 T/CUMM (4-12)
[2022-04-22 06:57] LABS: Albumin 2.9 G/DL (3.4-5.0); Bilirubin,Total 0.5 MG/DL (0.20-1.00); Calcium 8.8 MG/DL (8.5-10.1); Osmolality,Calculated 279.7 MOS/KG (273-304); Potassium 3.3 MMOL/L (3.5-5.1)
[2022-04-22 07:20] LABS: Anisocytosis Slight; Band Neutrophils 9 % (0-10); Lymphocytes 4 % (20-55); Platelet Estimate Normal; Total Cells Counted 100
[2022-04-22 07:21] LABS: Macrocytosis Slight
[2022-04-22] MEDS: TAMSULOSIN 0.4 MG CAPSULE PO SCH ×2 (09:25→21:32)
[2022-04-22] MEDS: DEXAMETHASONE 4 MG/1 ML VIAL IV SCH (09:26)
[2022-04-22] MEDS: busPIRone 10 MG TABLET PO SCH ×3 (09:27→21:31)
[2022-04-22] MEDS: SERTRALINE 25 MG TABLET PO SCH (09:27)
[2022-04-22] MEDS: AZITHROMYCIN 250 MG TABLET PO SCH (09:27)
[2022-04-22] MEDS: FAMOTIDINE 20 MG TABLET PO SCH ×2 (09:27→21:32)
[2022-04-22] MEDS: (Fluticasone-Umeclidin-Vilanter [Trelegy Ellipta] 100-62.5-25 mcg INH SCH (09:28)
[2022-04-22] MEDS: DOCUSATE SODIUM 100 MG CAPSULE PO SCH ×2 (09:28→21:31)
[2022-04-22] MEDS: REMDESIVIR 100 MG in SODIUM CHLORIDE 0.9% 100 ML IV SCH (09:29)
[2022-04-22] MEDS: oxyCODONE/ACETAMINOPHEN 5-325 MG TABLET PO PRN (15:33)
[2022-04-22] MEDS: ENOXAPARIN 40 MG/0.4 ML SYRINGE SUBCUT SCH (15:34)
[2022-04-22] MEDS: ZINC OXIDE 16% PASTE 57 GM TUBE TOP SCH ×2 (15:35→22:21)
[2022-04-22] MEDS: MELATONIN 3 MG TABLET PO SCH (21:32)
[2022-04-22] MEDS: cefTRIAXone 1,000 MG in SODIUM CHLORIDE 0.9% 100 ML IV SCH (21:32)
[2022-04-22] MEDS: FINASTERIDE 5 MG TABLET PO SCH (21:32)
[2022-04-23] MEDS: ALBUTEROL/IPRATROPIUM 3 ML NEB RESP TX SCH ×6 (03:53→23:54)
[2022-04-23] MEDS: DEXTROSE 5% 1,000 ML IV SCH ×2 (06:10→18:12)
[2022-04-23 06:43] LABS: Eosinophils % 0.2 % (0.00-10.9); Hematocrit 38.3 VOL% (42.0-52.0); Hemoglobin 12.6 GM/DL (14.0-18.0); Immature Granulocytes % 0.4 %; Immature Granulocytes Absolute 0.02 #; Lymphocytes # 0.5 10*3/uL (1.4-4.0); Lymphocytes % 8.7 % (21.2-54.2); Mean Corpuscular HGB Conc 32.9 GM/DL (32-36); Mean Corpuscular Volume 100.3 FL (87-102); Mean Platelet Volume 9.8 FL (9.6-12.0); Monocytes # 0.6 10*3/uL (0.11-0.8); Monocytes % 12.1 % (1.7-12.7); Neutrophils % 78.6 % (38.7-73.9); Platelet Count 151 T/CUMM (130-400); Red Blood Count 3.82 MC/CUMM (3.8-5.5); Red Cell Distribution Width 14.2 % (9.3-17.3); White Blood Count 5.3 T/CUMM (4-12)
[2022-04-23 07:02] LABS: Albumin 2.8 G/DL (3.4-5.0); Bilirubin,Total 0.4 MG/DL (0.20-1.00); Calcium 8.5 MG/DL (8.5-10.1); Osmolality,Calculated 275.8 MOS/KG (273-304); Potassium 3.7 MMOL/L (3.5-5.1); Total Protein 5.7 G/DL (6.4-8.2)
[2022-04-23] MEDS: ZINC OXIDE 16% PASTE 57 GM TUBE TOP SCH ×2 (09:32→20:55)
[2022-04-23] MEDS: busPIRone 10 MG TABLET PO SCH ×3 (09:32→20:54)
[2022-04-23] MEDS: SERTRALINE 25 MG TABLET PO SCH (09:33)
[2022-04-23] MEDS: AZITHROMYCIN 250 MG TABLET PO SCH (09:33)
[2022-04-23] MEDS: FAMOTIDINE 20 MG TABLET PO SCH ×2 (09:33→20:54)
[2022-04-23] MEDS: TAMSULOSIN 0.4 MG CAPSULE PO SCH ×2 (09:33→20:54)
[2022-04-23] MEDS: DOCUSATE SODIUM 100 MG CAPSULE PO SCH ×2 (09:33→20:54)
[2022-04-23] MEDS: REMDESIVIR 100 MG in SODIUM CHLORIDE 0.9% 100 ML IV SCH (09:38)
[2022-04-23] MEDS: (Fluticasone-Umeclidin-Vilanter [Trelegy Ellipta] 100-62.5-25 mcg INH SCH (09:41)
[2022-04-23] MEDS: DEXAMETHASONE 4 MG/1 ML VIAL IV SCH (09:45)
[2022-04-23] MEDS ORDERED: POLYETHYLENE GLYCOL POWDER 17 GM PACK PO PRN (13:29)
[2022-04-23] MEDS: ENOXAPARIN 40 MG/0.4 ML SYRINGE SUBCUT SCH (14:05)
[2022-04-23] MEDS: oxyCODONE/ACETAMINOPHEN 5-325 MG TABLET PO PRN (16:11)
[2022-04-23] MEDS: DIPHENOXYLATE/ATROPINE 2.5-0.025 MG TABLET PO PRN (17:09)
[2022-04-23 18:39] LABS: Mucus,Urine Occasional /LPF (Occasional); RBC,Urine 1 /HPF (0-4)
[2022-04-23 18:40] LABS: Bilirubin,Urine Negative (Negative); Blood, Urine Negative (Negative); Glucose,Urine (UA) Negative (Negative); Ketones,Urine Negative (Negative); Nitrite,Urine Negative (Negative); Protein,Urine Negative (Negative); Urine Appearance Clear (Clear); Urine Color Yellow (Yellow); Urine Specific Gravity 1.015 (1.001-1.035); Urine Urobilinogen 0.2 eU/dL (<2.0); Urine pH 8.5 (4.5-8.0)
[2022-04-23] MEDS: cefTRIAXone 1,000 MG in SODIUM CHLORIDE 0.9% 100 ML IV SCH (20:53)
[2022-04-23] MEDS: NYSTATIN 500,000 UNIT/5 ML UDCUP SWISH/SWAL SCH (20:54)
[2022-04-23] MEDS: MELATONIN 3 MG TABLET PO SCH (20:54)
[2022-04-23] MEDS: FINASTERIDE 5 MG TABLET PO SCH (20:54)
[2022-04-24] MEDS: ALBUTEROL/IPRATROPIUM 3 ML NEB RESP TX SCH ×6 (02:41→23:20)
[2022-04-24 04:51] LABS: Basophils % 0.2 % (0.0-0.8); Immature Granulocytes % 0.6 %; Immature Granulocytes Absolute 0.03 #; Lymphocytes # 0.4 10*3/uL (1.4-4.0); Mean Corpuscular HGB Conc 32.4 GM/DL (32-36); Mean Corpuscular Volume 101.4 FL (87-102); Mean Platelet Volume 10.1 FL (9.6-12.0); Monocytes # 0.6 10*3/uL (0.11-0.8); Monocytes % 10.2 % (1.7-12.7); Platelet Count 160 T/CUMM (130-400); Red Blood Count 3.65 MC/CUMM (3.8-5.5); Red Cell Distribution Width 13.8 % (9.3-17.3); White Blood Count 5.4 T/CUMM (4-12)
[2022-04-24 05:06] LABS: Calcium 8.5 MG/DL (8.5-10.1); Osmolality,Calculated 271.2 MOS/KG (273-304); Potassium 3.8 MMOL/L (3.5-5.1)
[2022-04-24] MEDS: oxyCODONE/ACETAMINOPHEN 5-325 MG TABLET PO PRN ×2 (09:02→21:19)
[2022-04-24] MEDS: NYSTATIN 500,000 UNIT/5 ML UDCUP SWISH/SWAL SCH ×4 (09:02→21:07)
[2022-04-24] MEDS: SERTRALINE 25 MG TABLET PO SCH (09:02)
[2022-04-24] MEDS: DOCUSATE SODIUM 100 MG CAPSULE PO SCH ×2 (09:03→22:01)
[2022-04-24] MEDS: FAMOTIDINE 20 MG TABLET PO SCH ×2 (09:03→21:07)
[2022-04-24] MEDS: busPIRone 10 MG TABLET PO SCH ×3 (09:03→21:07)
[2022-04-24] MEDS: ZINC OXIDE 16% PASTE 57 GM TUBE TOP SCH ×2 (09:08→21:07)
[2022-04-24] MEDS: DEXAMETHASONE 4 MG/1 ML VIAL IV SCH (09:08)
[2022-04-24] MEDS: TAMSULOSIN 0.4 MG CAPSULE PO SCH ×2 (09:10→21:07)
[2022-04-24] MEDS: (Fluticasone-Umeclidin-Vilanter [Trelegy Ellipta] 100-62.5-25 mcg INH SCH (09:16)
[2022-04-24] MEDS ORDERED: KETOROLAC 15 MG/1 ML VIAL IV ONE (11:10)
[2022-04-24] MEDS: DEXTROSE 5% 1,000 ML IV SCH ×2 (13:57→15:33)
[2022-04-24] MEDS: ENOXAPARIN 40 MG/0.4 ML SYRINGE SUBCUT SCH (14:02)
[2022-04-24] MEDS: FINASTERIDE 5 MG TABLET PO SCH (21:07)
[2022-04-24] MEDS: MELATONIN 3 MG TABLET PO SCH (21:07)
[2022-04-24] MEDS: cefTRIAXone 1,000 MG in SODIUM CHLORIDE 0.9% 100 ML IV SCH (21:09)
[2022-04-25] MEDS: ALBUTEROL/IPRATROPIUM 3 ML NEB RESP TX SCH ×6 (02:35→23:50)
[2022-04-25 06:21] LABS: Basophils % 0.2 % (0.0-0.8); Eosinophils % 0.1 % (0.00-10.9); Hematocrit 37.9 VOL% (42.0-52.0); Hemoglobin 12.8 GM/DL (14.0-18.0); Immature Granulocytes % 1.6 %; Immature Granulocytes Absolute 0.14 #; Lymphocytes # 0.7 10*3/uL (1.4-4.0); Lymphocytes % 8.2 % (21.2-54.2); Mean Corpuscular HGB Conc 33.8 GM/DL (32-36); Mean Corpuscular Volume 98.4 FL (87-102); Mean Platelet Volume 9.8 FL (9.6-12.0); Monocytes # 1.1 10*3/uL (0.11-0.8); Monocytes % 12.4 % (1.7-12.7); Neutrophils % 77.5 % (38.7-73.9); Platelet Count 188 T/CUMM (130-400); Red Blood Count 3.85 MC/CUMM (3.8-5.5); Red Cell Distribution Width 13.9 % (9.3-17.3); White Blood Count 8.7 T/CUMM (4-12)
[2022-04-25 06:43] LABS: Calcium 8.6 MG/DL (8.5-10.1); Osmolality,Calculated 271.2 MOS/KG (273-304); Potassium 3.8 MMOL/L (3.5-5.1)
[2022-04-25] MEDS: DOCUSATE SODIUM 100 MG CAPSULE PO SCH ×2 (08:16→22:09)
[2022-04-25] MEDS: FAMOTIDINE 20 MG TABLET PO SCH ×2 (08:16→22:10)
[2022-04-25] MEDS: TAMSULOSIN 0.4 MG CAPSULE PO SCH ×2 (08:16→22:10)
[2022-04-25] MEDS: SERTRALINE 25 MG TABLET PO SCH (08:16)
[2022-04-25] MEDS: ZINC OXIDE 16% PASTE 57 GM TUBE TOP SCH ×2 (08:16→22:10)
[2022-04-25] MEDS: busPIRone 10 MG TABLET PO SCH ×3 (08:17→22:09)
[2022-04-25] MEDS: oxyCODONE/ACETAMINOPHEN 5-325 MG TABLET PO PRN ×2 (08:17→22:10)
[2022-04-25] MEDS: (Fluticasone-Umeclidin-Vilanter [Trelegy Ellipta] 100-62.5-25 mcg INH SCH (08:18)
[2022-04-25] MEDS: NYSTATIN 500,000 UNIT/5 ML UDCUP SWISH/SWAL SCH ×4 (08:18→22:09)
[2022-04-25] MEDS: DEXAMETHASONE 4 MG/1 ML VIAL IV SCH (08:19)
[2022-04-25] MEDS: DEXTROSE 5% 1,000 ML IV SCH ×2 (16:50→19:28)
[2022-04-25] MEDS: ENOXAPARIN 40 MG/0.4 ML SYRINGE SUBCUT SCH (16:51)
[2022-04-25] MEDS: cefTRIAXone 1,000 MG in SODIUM CHLORIDE 0.9% 100 ML IV SCH (22:08)
[2022-04-25] MEDS: MELATONIN 3 MG TABLET PO SCH (22:09)
[2022-04-25] MEDS: FINASTERIDE 5 MG TABLET PO SCH (22:13)
[2022-04-26] MEDS: ALBUTEROL/IPRATROPIUM 3 ML NEB RESP TX SCH ×6 (03:00→22:55)
[2022-04-26] MEDS: ENOXAPARIN 40 MG/0.4 ML SYRINGE SUBCUT SCH (09:32)
[2022-04-26] MEDS: TAMSULOSIN 0.4 MG CAPSULE PO SCH ×2 (09:33→21:14)
[2022-04-26] MEDS: SERTRALINE 25 MG TABLET PO SCH (09:33)
[2022-04-26] MEDS: DOCUSATE SODIUM 100 MG CAPSULE PO SCH ×2 (09:33→21:14)
[2022-04-26] MEDS: NYSTATIN 500,000 UNIT/5 ML UDCUP SWISH/SWAL SCH ×4 (09:33→21:13)
[2022-04-26] MEDS: busPIRone 10 MG TABLET PO SCH ×3 (09:33→21:14)
[2022-04-26] MEDS: FAMOTIDINE 20 MG TABLET PO SCH ×2 (09:33→21:14)
[2022-04-26] MEDS: DEXAMETHASONE 4 MG/1 ML VIAL IV SCH (09:34)
[2022-04-26] MEDS: oxyCODONE/ACETAMINOPHEN 5-325 MG TABLET PO PRN ×2 (09:35→21:27)
[2022-04-26] MEDS: ZINC OXIDE 16% PASTE 57 GM TUBE TOP SCH ×2 (09:39→21:13)
[2022-04-26] MEDS: (Fluticasone-Umeclidin-Vilanter [Trelegy Ellipta] 100-62.5-25 mcg INH SCH (10:10)
[2022-04-26] MEDS ORDERED: TUBERCULIN SKIN TEST 0.1 ML SYRINGE INTRADERM ONE (14:27)
[2022-04-26] MEDS: DEXTROSE 5% 1,000 ML IV SCH (15:30)
[2022-04-26] MEDS: cefTRIAXone 1,000 MG in SODIUM CHLORIDE 0.9% 100 ML IV SCH (21:13)
[2022-04-26] MEDS: MELATONIN 3 MG TABLET PO SCH (21:14)
[2022-04-26] MEDS: FINASTERIDE 5 MG TABLET PO SCH (21:14)
[2022-04-27] MEDS: ALBUTEROL/IPRATROPIUM 3 ML NEB RESP TX SCH ×4 (03:31→15:10)
[2022-04-27] MEDS: NYSTATIN 500,000 UNIT/5 ML UDCUP SWISH/SWAL SCH ×3 (10:30→17:28)
[2022-04-27] MEDS: TAMSULOSIN 0.4 MG CAPSULE PO SCH (10:30)
[2022-04-27] MEDS: busPIRone 10 MG TABLET PO SCH ×2 (10:30→14:02)
[2022-04-27] MEDS: ENOXAPARIN 40 MG/0.4 ML SYRINGE SUBCUT SCH (10:30)
[2022-04-27] MEDS: ZINC OXIDE 16% PASTE 57 GM TUBE TOP SCH (10:30)
[2022-04-27] MEDS: FAMOTIDINE 20 MG TABLET PO SCH (10:30)
[2022-04-27] MEDS: DOCUSATE SODIUM 100 MG CAPSULE PO SCH (10:30)
[2022-04-27] MEDS: SERTRALINE 25 MG TABLET PO SCH (10:30)
[2022-04-27] MEDS: DEXAMETHASONE 4 MG/1 ML VIAL IV SCH (10:31)
[2022-04-27] MEDS: DIPHENOXYLATE/ATROPINE 2.5-0.025 MG TABLET PO PRN (14:02)
[2022-04-27] MEDS: (Fluticasone-Umeclidin-Vilanter [Trelegy Ellipta] 100-62.5-25 mcg INH SCH (14:17)
[2022-04-27] MEDS: DEXTROSE 5% 1,000 ML IV SCH (14:28)
[2022-04-27 16:21] VITALS: BP 116/67
== END 2022-04-27 18:00 | disposition hospice, inpatient (51) | DRG 177 ==
LOC: N.ED 19:28 → N.EDINP 23:54 → SUATTDRO 23:54 → N.2E 04-19 14:44
PROVIDERS: ADMIT Internal Medicine; ATTEND Hospitalist